=== PATIENT | male | born 1960 | race Caucasian/White ===

== ENCOUNTER 2016-11-10 20:38 | Emergency (ER) | payer OTHER ==
[2016-11-10 22:53] LABS: Hematocrit 43 % (42-52); Hemoglobin 14.3 g/dl (14.0-18.0); Mean Corpuscular HGB Conc 33 g/dl (31-36); Mean Corpuscular Hemoglobin 33 pg (27-31); Mean Corpuscular Volume 100 fL (80-94); Mean Platelet Volume 7 um3 (7.4-10.4); Red Blood Count 4.32 10^6/ul (4.0-5.4); Red Cell Distribution Width 14 % (10.5-15); White Blood Count 4.1 10^3/ul (3.5-10.8)
[2016-11-10 23:20] LABS: Troponin I 0.01 ng/mL (<0.04)
[2016-11-10 23:21] LABS: Albumin 3.9 g/dL (3.2-5.2); BUN/Creatinine Ratio 10.3 (8-20); Calcium 9.4 mg/dL (8.6-10.3); EGFR African American 131.5 (>60); EGFR Non-African American 102.2 (>60); Globulin 3.5 g/dL (2-4); Potassium 3.6 mmol/L (3.5-5.0); Total Bilirubin 0.3 mg/dL (0.2-1.0); Total Protein 7.4 g/dL (6.4-8.9)
[2016-11-11] MEDS ORDERED: Iohexol 350* (CONTRAST) 500 ML MDV IV ONE (00:14)
[2016-11-11] MEDS ORDERED: NS 0.9% 1000 ML* 1,000 ML IV ONE (00:20)
--- NOTE | 2016-11-11 01:56 | ED ---
Primitivo Thompson Benjamin, scribed for Monika Robbins MD on 11/10/16 at 2258 . Abdominal Pain/Male - HPI Summary HPI Summary: 56yo male presents to ED for evaluation for his right rib pain. Pt reports pain in right ribs and right chest under his right nipple. Pt reports pain worsening with cough, and that pt has been lifting heavy objects frequently for work. - History of Current Complaint Chief Complaint: EDGeneral Stated Complaint: CHEST XRAY REQUESTED BY KATHIE Time Seen by Provider: 11/10/16 21:50 Hx Obtained From: Patient Onset/Duration: Sudden Onset, Lasting Days, Still Present Timing: Constant Severity Initially: Mild Severity Currently: Mild Location: Other - right rib Radiates: Yes Radiates to: Chest - right nipple Aggravating Factor(s): Nothing Alleviating Factor(s): Nothing Associated Signs And Symptoms: Positive: Negative. Negative: Fever, Cough, Chest Pain, Nausea, Vomiting - Allergies/Home Medications Allergies/Adverse Reactions: Allergies Allergy/AdvReac Type Severity Reaction Status Date / Time No Known Allergies Allergy Verified 11/10/16 20:51 PMH/Surg Hx/FS Hx/Imm Hx Previously Healthy: Yes Infectious Disease History: No Infectious Disease History: Denies: Traveled Outside the [place] in Last 30 Days - Family History Known Family History: Negative: Cardiac Disease, Hypertension, Diabetes - Social History Occupation: Employed Full-time Lives: Alone Alcohol Use: Daily Alcohol Amount: "at least 6 drinks per day" Substance Use Type: Reports: None Hx Tobacco Use: Yes Smoking Status (MU): Heavy Every Day Tobacco Smoker Review of Systems Constitutional: Negative Negative: Fever Eyes: Negative Positive: Epistaxis Cardiovascular: Negative Positive: Other - pain under right nipple. Right rib pain. Negative: Palpitations, Chest Pain Positive: Cough Gastrointestinal: Negative Negative: Abdominal Pain, Vomiting, Diarrhea, Nausea Genitourinary: Negative Musculoskeletal: Negative Skin: Negative Negative: Rash Neurological: Negative Negative: Headache Psychological: Normal All Other Systems Reviewed And Are Negative: Yes Physical Exam Triage Information Reviewed: Yes Vital Signs On Initial Exam: Initial Vitals Temp Pulse Resp BP Pulse Ox 98.1 F 92 15 125/78 99 11/10/16 20:49 11/10/16 20:49 11/10/16 20:49 11/10/16 20:49 11/10/16 20:49 Vital Signs Reviewed: Yes Appearance: Positive: Well-Appearing, Pain Distress - mild Skin: Positive: Warm, Skin Color Reflects Adequate Perfusion, Dry Head/Face: Positive: Normal Head/Face Inspection Eyes: Positive: EOMI, ANDIE ENT: Positive: Normal ENT inspection, Hearing grossly normal, Pharynx normal, TMs normal Neck: Positive: Supple, Nontender Respiratory/Lung Sounds: Positive: Clear to Auscultation, Breath Sounds Present. Negative: Rales, Rhonchi Cardiovascular: Positive: RRR. Negative: Murmur Abdomen Description: Positive: Nontender, Soft Bowel Sounds: Positive: Present Musculoskeletal: Positive: Other - No crepitus. pain under the right nipple. Neurological: Positive: Normal, Sensory/Motor Intact, Alert, Oriented to Person Place, Time, CN Intact II-III Psychiatric: Positive: Affect/Mood Appropriate - [place] Coma Scale Coma Scale Total: 15 Diagnostics - Vital Signs Vital Signs Temp Pulse Resp BP Pulse Ox 11/10/16 20:49 98.1 F 92 15 125/78 99 - Laboratory Lab Results: Lab Results 11/10/16 11/10/16 11/10/16 Range/Units 22:45 22:45 22:45 WBC 4.1 (3.5-10.8) 10^3/ul RBC 4.32 (4.0-5.4) 10^6/ul Hgb 14.3 (14.0-18.0) g/dl Hct 43 (42-52) % MCV 100 H (80-94) fL MCH 33 H (27-31) pg MCHC 33 (31-36) g/dl RDW 14 (10.5-15) % Plt Count 234 (150-450) 10^3/ul MPV 7 L (7.4-10.4) um3 Neut % (Auto) 32.6 L (38-83) % Lymph % (Auto) 47.2 H (25-47) % [place] % (Auto) 10.7 H (1-9) % Eos % (Auto) 8.2 H (0-6) % Baso % (Auto) 1.3 (0-2) % Absolute Neuts (auto) 1.3 L (1.5-7.7) 10^3/ul Absolute Lymphs (auto) 1.9 (1.0-4.8) 10^3/ul Absolute Monos (auto) 0.4 (0-0.8) 10^3/ul Absolute Eos (auto) 0.3 (0-0.6) 10^3/ul Absolute Basos (auto) 0.1 (0-0.2) 10^3/ul Absolute Nucleated RBC 0 10^3/ul Nucleated RBC % 0 D-Dimer, Quantitative 385 H (Less Than 230) ng/mL Sodium 137 (133-145) mmol/L Potassium 3.6 (3.5-5.0) mmol/L Chloride 101 (101-111) mmol/L Carbon Dioxide 31 (22-32) mmol/L Anion Gap 5 (2-11) mmol/L BUN 8 (6-24) mg/dL Creatinine 0.78 (0.67-1.17) mg/dL Est GFR ( Amer) 131.5 (>60) Est GFR (Non-Af Amer) 102.2 (>60) BUN/Creatinine Ratio 10.3 (8-20) Glucose 82 (70-100) mg/dL Calcium 9.4 (8.6-10.3) mg/dL Total Bilirubin 0.30 (0.2-1.0) mg/dL AST 37 (13-39) U/L ALT 28 (7-52) U/L Alkaline Phosphatase 48 (34-104) U/L Troponin I 0.01 (<0.04) ng/mL Total Protein 7.4 (6.4-8.9) g/dL Albumin 3.9 (3.2-5.2) g/dL Globulin 3.5 (2-4) g/dL Albumin/Globulin Ratio 1.1 (1-3) Result Diagrams: 11/10/16 22:45 11/10/16 22:45 Lab Statement: Any lab studies that have been ordered have been reviewed, and results considered in the medical decision making process. - Radiology CXR Xray Interpretation: No Acute Changes Radiology Interpretation Completed By: ED Physician - CT CTA Chest CT Interpretation: No Acute Changes CT Interpretation Completed By: Radiologist - EKG 1397. Cardiac Rate: NL - 87bpm EKG Rhythm: Sinus Rhythm ST Segment: Normal Ectopy: None Abdominal Pain Fem Course/Dx - Course Course Of Treatment: 56 yo male alcoholic and smoker with right sided chest wall pain x several weeks, no trauma but does do heavy lifting at his job at [employer] labs, cxr and cta (elevated ddimer) neg. [facility] - Diagnoses Provider Diagnoses: Chest wall pain Discharge - Discharge Plan Condition: Stable Disposition: HOME Patient Education Materials: Chest Wall Pain (ED) Referrals: [facility] [place] [facility]ERR[facility] [Outside] Non Staff,Doctor [Primary Care Provider] - The documentation as recorded by the Primitivo vides Benjamin accurately reflects the service I personally performed and the decisions made by me, Monika Robbins MD.
[2016-11-11 01:59] VITALS: BP 123/78
--- NOTE | 2016-11-11 07:11 | RAD ---
INDICATION: Chest pain COMPARISON: October 28, 2004 TECHNIQUE: PA and lateral dual-energy views were obtained. FINDINGS: Bones/Soft Tissues: There are no acute bony findings. Cardiomediastinal: The cardiomediastinal silhouette is normal. Lungs: There are no infiltrates. There is hyperinflation. Pleura: There are no pleural effusions. Other: None IMPRESSION: HYPERINFLATION. NO ACTIVE DISEASE.
--- NOTE | 2016-11-11 10:28 | RAD ---
Indication: Chest pain. Contrast: Administered 58.7 ml of OMNIPAQUE 350 mgi/ml CTA of the chest was performed after IV contrast administration. Coronal and sagittal reconstructed images were obtained. The pulmonary arterial tree is well opacified. There are no filling defects present to suggest pulmonary embolus. There is a lymph node in the AP window measuring up to 10 mm. There is an aberrant right subclavian artery noted. The trachea and major bronchi appear patent. No evidence of nodules are identified, although atelectasis is noted in the lingula and right middle lobe. No alveolar consolidation is noted. No pneumothorax is noted. The aorta demonstrates no evidence of aortic dissection or aneurysmal dilatation. The liver is enlarged with likely diffusely decreased in density consistent with hepatic steatosis. There is a left renal cyst noted. The remainder of the abdominal organs are unremarkable. IMPRESSION: 1. NO PULMONARY EMBOLUS IS NOTED. NO EVIDENCE OF AORTIC DISSECTION IS NOTED. ATELECTASIS IS NOTED IN THE RIGHT MIDDLE LOBE AND LINGULA. 2. ENLARGED LIVER WITH LIKELY HEPATIC STEATOSIS.
== END 2016-11-11 01:51 | disposition home or self-care (01) ==
LOC: ED 20:38
DX: R07.81 Pleurodynia (principal); R05 Cough; F17.210 Nicotine dependence, cigarettes, uncomplicated
CPT/HCPCS: 36415; 71020; 71275; 80053; 84484; 85025; 85379; 93005; 99282; Q9967

== ENCOUNTER 2018-02-26 17:27 | Emergency (ER) | payer OTHER ==
[2018-02-26] MEDS ORDERED: LORazepam INJ* 2 MG/ML 1 ML VIAL IM ONE (18:10)
[2018-02-26] MEDS ORDERED: Haloperidol INJ IV/IM* 5 MG/ML AMP IM ONE (18:10)
[2018-02-26] MEDS ORDERED: diPHENhydraMINE IV* 50 MG/ML 1 ml VIAL (BENADRYL) IM ONE (18:11)
[2018-02-26 19:32] LABS: ABS Basophils 0 10^3/ul (0-0.2); ABS Eosinophils 0.1 10^3/ul (0-0.6); ABS Lymphocytes 1.4 10^3/ul (1.0-4.8); ABS Monocytes 0.3 10^3/ul (0-0.8); ABS Neutrophils 1.8 10^3/ul (1.5-7.7); ABS Nucleated RBC 0 10^3/ul; Eosinophil % 1.4 % (0-6); Hematocrit 41 % (42-52); Hemoglobin 14.2 g/dl (14.0-18.0); Lymphocyte % 39.2 % (25-47); Mean Corpuscular HGB Conc 35 g/dl (31-36); Mean Corpuscular Hemoglobin 34 pg (27-31); Mean Corpuscular Volume 100 fL (80-94); Mean Platelet Volume 7.6 fL (7.4-10.4); Nucleated Red Blood Cells % 0.2; Platelet Count 148 10^3/ul (150-450); Red Blood Count 4.14 10^6/ul (4.00-5.40); Red Cell Distribution Width 13 % (10.5-15); White Blood Count 3.6 10^3/ul (3.5-10.8)
--- NOTE | 2018-02-27 02:49 | ED ---
Substance Abuse/Use - HPI Summary HPI Summary: Patient positive for EtOH was found lying in the street by PD and brought for evaluation. Patient alert and oriented, also irate and agitated, denies any pain or injury, desires to leave. Refuses to state how much he has had to drink , will only state he is okay and wants to go home. Patient persuaded to stay for observation and blood work. - History Of Current Complaint Chief Complaint: EDSubstanceAbuse Stated Complaint: 2208 Time Seen by Provider: 02/26/18 17:44 Hx Obtained From: Patient Overdose Characteristics: Oral Severity Initially: Moderate Severity Currently: Moderate Character: Angry Associated Signs And Symptoms: Hostile - Allergies/Home Medications Allergies/Adverse Reactions: Allergies Allergy/AdvReac Type Severity Reaction Status Date / Time No Known Allergies Allergy Verified 11/10/16 20:51 Home Medications: Home Medications Unobtainable 02/26/18 [History Confirmed 02/26/18] PMH/Surg Hx/FS Hx/Imm Hx Endocrine/Hematology History: Denies: Hx Diabetes Cardiovascular History: Denies: Hx Hypertension History: Denies: Hx Dialysis, Hx Renal Disease Infectious Disease History: No Infectious Disease History: Denies: Traveled Outside the [place] in Last 30 Days - Family History Known Family History: Negative: Cardiac Disease, Hypertension, Diabetes - Social History Alcohol Use: Daily Alcohol Amount: "at least 6 drinks per day" Hx Substance Use: No Substance Use Type: Reports: None Hx Tobacco Use: Yes Smoking Status (MU): Heavy Every Day Tobacco Smoker Review of Systems Constitutional: Negative Eyes: Negative ENT: Negative Cardiovascular: Negative Respiratory: Negative Gastrointestinal: Negative Genitourinary: Negative Musculoskeletal: Negative Skin: Negative Neurological: Negative Psychological: Normal All Other Systems Reviewed And Are Negative: Yes Physical Exam - Summary Physical Exam Summary: No ecchymosis, erythema, deformity, swelling, trauma noted to head, face, mouth. Patient moving bilateral upper extremities and bilateral lower extremities without any indication of pain. No pain with palpation of the abdomen, chest wall, neck, back, head. Triage Information Reviewed: Yes Vital Signs On Initial Exam: Initial Vitals Temp Pulse Resp BP Pulse Ox 98.2 F 92 16 130/85 98 02/26/18 17:30 02/26/18 17:30 02/26/18 17:30 02/26/18 17:30 02/26/18 17:30 Vital Signs Reviewed: Yes Appearance: Positive: Well-Appearing Skin: Positive: Warm Head/Face: Positive: Normal Head/Face Inspection Eyes: Positive: Normal Neck: Positive: Supple Respiratory/Lung Sounds: Positive: Clear to Auscultation Cardiovascular: Positive: Normal Abdomen Description: Positive: Nontender Musculoskeletal: Positive: Normal Neurological: Positive: Normal Psychiatric: Positive: Normal AVPU Assessment: Alert - [place] Coma Scale Best Eye Response: 4 - Spontaneous Best Motor Response: 6 - Obeys Commands Best Verbal Response: 5 - Oriented Coma Scale Total: 15 Diagnostics - Vital Signs Vital Signs Temp Pulse Resp BP Pulse Ox 02/26/18 17:30 98.2 F 92 16 130/85 98 - Laboratory Lab Results: Lab Results 02/26/18 02/26/18 Range/Units 19:24 19:24 WBC 3.6 (3.5-10.8) 10^3/ul RBC 4.14 (4.00-5.40) 10^6/ul Hgb 14.2 (14.0-18.0) g/dl Hct 41 L (42-52) % MCV 100 H (80-94) fL MCH 34 H (27-31) pg MCHC 35 (31-36) g/dl RDW 13 (10.5-15) % Plt Count 148 L (150-450) 10^3/ul MPV 7.6 (7.4-10.4) fL Neut % (Auto) 50.2 (38-83) % Lymph % (Auto) 39.2 (25-47) % [place] % (Auto) 8.3 H (0-7) % Eos % (Auto) 1.4 (0-6) % Baso % (Auto) 0.9 (0-2) % Absolute Neuts (auto) 1.8 (1.5-7.7) 10^3/ul Absolute Lymphs (auto) 1.4 (1.0-4.8) 10^3/ul Absolute Monos (auto) 0.3 (0-0.8) 10^3/ul Absolute Eos (auto) 0.1 (0-0.6) 10^3/ul Absolute Basos (auto) 0 (0-0.2) 10^3/ul Absolute Nucleated RBC 0 10^3/ul Nucleated RBC % 0.2 Sodium 136 (135-145) mmol/L Potassium 3.6 (3.5-5.0) mmol/L Chloride 101 (101-111) mmol/L Carbon Dioxide 26 (22-32) mmol/L Anion Gap 9 (2-11) mmol/L BUN 6 (6-24) mg/dL Creatinine 0.64 L (0.67-1.17) mg/dL Est GFR ( Amer) 154.9 (>60) Est GFR (Non-Af Amer) 128.0 (>60) BUN/Creatinine Ratio 9.4 (8-20) Glucose 110 H (70-100) mg/dL Calcium 8.8 (8.6-10.3) mg/dL Total Bilirubin 0.40 (0.2-1.0) mg/dL AST 52 H (13-39) U/L ALT 44 (7-52) U/L Alkaline Phosphatase 48 (34-104) U/L Total Protein 6.4 (6.4-8.9) g/dL Albumin 3.8 (3.2-5.2) g/dL Globulin 2.6 (2-4) g/dL Albumin/Globulin Ratio 1.5 (1-3) Serum Alcohol 260 H (<10) mg/dL Result Diagrams: 02/26/18 19:24 02/26/18 19:24 Lab Statement: Any lab studies that have been ordered have been reviewed, and results considered in the medical decision making process. Course/Dx - Course Course Of Treatment: Patient positive for EtOH was found lying in the street by PD and brought for evaluation. Patient alert and oriented, also irate and agitated, denies any pain or injury, desires to leave. Refuses to state how much he has had to drink, will only state he is okay and wants to go home. Patient persuaded to stay for observation and blood work. Physical exam:No ecchymosis, erythema, deformity, swelling, trauma noted to head, face, mouth. Patient moving bilateral upper extremities and bilateral lower extremities without any indication of pain. No pain with palpation of the abdomen, chest wall, neck, back, head. Patient slept for 6 hours. Upon arousal was alert, coherent, calm. States she is ready to go home. She was ambulated and maintained balance without issue. No diaphoresis, agitation, nausea or vomiting hallucinations tremors noted. Patient was able to dress himself, was coherent and appropriate in his answers and behavior. Continued to deny injury or pain or symptoms. Patient was sent home by cab. - Diagnoses Provider Diagnoses: ETOH abuse Discharge - Sign-Out/Discharge Documenting (check all that apply): Patient Departure - Discharge Plan Condition: Stable Disposition: HOME Patient Education Materials: Abuse of Alcohol (ED) Referrals: Ye Peraza MD [Primary Care Provider] - Additional Instructions: Follow-up with primary care. Return to the ED for any new or worsening symptoms. - Billing Disposition and Condition Condition: STABLE Disposition: Home
[2018-02-27 04:54] VITALS: BP 0/0
== END 2018-02-27 03:30 | disposition home or self-care (01) ==
LOC: ED 17:27
DX: F10.129 Alcohol abuse with intoxication, unspecified (principal); Y90.8 Blood alcohol level of 240 mg/100 ml or more; F17.210 Nicotine dependence, cigarettes, uncomplicated
CPT/HCPCS: 36415; 80053; 80320; 85025; 96372; 99283; G0480

== ENCOUNTER 2018-02-28 21:23 | Inpatient (IN) | payer MEDICAID, OTHER ==
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
[2018-02-28] MEDS ORDERED: Metoclopramide IV* 5 MG/ML 2 ML VIAL IV ONE (22:17)
[2018-02-28] MEDS ORDERED: HYDROmorphone INJ1* 1 MG/ML SYRINGE IV SLOW PU ONE (22:17)
[2018-02-28 22:40] LABS: ABS Basophils 0 10^3/ul (0-0.2); ABS Eosinophils 0 10^3/ul (0-0.6); ABS Lymphocytes 1.2 10^3/ul (1.0-4.8); ABS Monocytes 0.6 10^3/ul (0-0.8); ABS Neutrophils 6.8 10^3/ul (1.5-7.7); ABS Nucleated RBC 0 10^3/ul; Eosinophil % 0.4 % (0-6); Hematocrit 40 % (42-52); Lymphocyte % 13.6 % (25-47); Mean Corpuscular HGB Conc 35 g/dl (31-36); Mean Corpuscular Hemoglobin 35 pg (27-31); Mean Corpuscular Volume 100 fL (80-94); Mean Platelet Volume 7.6 fL (7.4-10.4); Nucleated Red Blood Cells % 0; Platelet Count 147 10^3/ul (150-450); Red Blood Count 4.03 10^6/ul (4.00-5.40); Red Cell Distribution Width 13 % (10.5-15); White Blood Count 8.5 10^3/ul (3.5-10.8)
[2018-02-28 22:49] LABS: INR 0.87 (0.77-1.02)
[2018-02-28 23:03] LABS: EGFR Non-African American 130.4 (>60)
[2018-03-01] MEDS ORDERED: NS 0.9% 1000 ML* 1,000 ML IV SCH ×3 (01:00→06:15)
[2018-03-01] MEDS ORDERED: Thiamine IV* 100 MG/ML 2 ML VIAL IM ONE (01:56)
[2018-03-01] MEDS ORDERED: Ondansetron INJ* 2 MG/ML VIAL IV PRN (01:59)
[2018-03-01] MEDS ORDERED: LORazepam TAB(*) 1 MG PO SCH (02:00)
[2018-03-01] MEDS ORDERED: LORazepam INJ* 2 MG/ML 1 ML VIAL IM SCH (02:00)
[2018-03-01] MEDS: Morphine VIAL* 4 MG/ML VIAL (1 ml vial) IV PRN ×2 (02:50→10:49)
[2018-03-01] MEDS: Multivitamins/Minerals TAB PO SCH ×2 (03:27→08:06)
[2018-03-01] MEDS: Thiamine TAB* 100 MG TAB PO SCH ×2 (03:27→08:07)
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
[2018-03-01] MEDS ORDERED: Albuterol/Ipratropium NEB.SOL* Albuterol 2.5 MG/Ipratropium 0.5 MG 3 ML INH SCH (07:00)
[2018-03-01] MEDS: Folic Acid TAB* 1 MG PO SCH (08:06)
[2018-03-01] MEDS ORDERED: Famotidine IV* 10 MG/ML 2 ML (20 mg) IV ONE (08:20)
[2018-03-01] MEDS ORDERED: Pneumococcal *Vac Polyvalent 0.5 ML VIAL IM ONE (09:00)
[2018-03-01] MEDS ORDERED: Albuterol/Ipratropium NEB.SOL* Albuterol 2.5 MG/Ipratropium 0.5 MG 3 ML INH PRN (09:05)
[2018-03-01] MEDS ORDERED: Enoxaparin(*) 40 MG/0.4 ML SYR SUBCUT SCH (10:00)
[2018-03-01] MEDS: Nicotine PATCH 21 MG/24 HR* PATCH TRANSDERM SCH (10:10)
[2018-03-01 11:31] LABS: ABS Basophils 0 10^3/ul (0-0.2); ABS Eosinophils 0 10^3/ul (0-0.6); ABS Lymphocytes 0.7 10^3/ul (1.0-4.8); ABS Monocytes 0.6 10^3/ul (0-0.8); ABS Neutrophils 6.6 10^3/ul (1.5-7.7); ABS Nucleated RBC 0 10^3/ul; Eosinophil % 0.1 % (0-6); Hematocrit 35 % (42-52); Hemoglobin 12.3 g/dl (14.0-18.0); Lymphocyte % 9.2 % (25-47); Mean Corpuscular HGB Conc 35 g/dl (31-36); Mean Corpuscular Hemoglobin 35 pg (27-31); Mean Corpuscular Volume 99 fL (80-94); Nucleated Red Blood Cells % 0; Platelet Count 147 10^3/ul (150-450); Red Blood Count 3.52 10^6/ul (4.00-5.40); Red Cell Distribution Width 13 % (10.5-15)
[2018-03-01 11:39] LABS: Urine Appearance Cloudy; Urine Blood 2+ (Negative); Urine Color Yellow; Urine Ketones 2+ (Negative); Urine Protein Negative (Negative); Urine Red Blood Cell 2+(6-10/hpf) (Absent); Urine Specific Gravity 1.015 (1.010-1.030); Urine Urobilinogen Negative (Negative); Urine White Blood Cell Trace(0-5/hpf) (Absent)
[2018-03-01 11:48] LABS: EGFR Non-African American 135.3 (>60)
[2018-03-01 12:14] LABS: INR 0.89 (0.77-1.02)
--- NOTE | 2018-03-01 12:18 | CONSULT ---
Consult Consult: Patient was seen and examined at bedside. Full consultation report was dictated and stat landscaping supervisor requested. Patient has a right intertrochanteric fracture and will go to the OR for a gamma nail today with Dr. Pa. He should remain NPO and anticoag be held today. I have discussed this case with Dr Priest who has confirmed he is medically optimized with no need for further medical workup prior to surgery. Anticipated OR time is 1330.
[2018-03-01] MEDS ORDERED: KETAMINE HCL* 50 MG/ML 10 ML VIAL ONE (12:32)
[2018-03-01] MEDS ORDERED: fentaNYL* 50 MCG/ML 2 ML VIAL (100 MCG VIAL) ONE ×2 (12:32→14:50)
[2018-03-01] MEDS ORDERED: Midazolam* 1 MG/ML 5 ML VIAL (5 MG) ONE (12:33)
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
[2018-03-01] MEDS ORDERED: ceFAZolin 2 GM PREMIX in ORs 2 GM/50 ML BAG IVPB ONE (13:01)
[2018-03-01] MEDS ORDERED: Morphine VIAL* 4 MG/ML VIAL (1 ml vial) IV ONE (13:40)
[2018-03-01] MEDS ORDERED: Bupivacaine 0.25% W/EPI* 10 ML SDV ONE (14:07)
[2018-03-01] MEDS ORDERED: Propofol* 10 MG/ML 20 ML BTL IV PUSH ONE (14:49)
[2018-03-01] MEDS ORDERED: Lidocaine 2% PF * 5 ML VIAL ONE (14:49)
[2018-03-01] MEDS ORDERED: Dexamethasone IV* 4 MG/ML 1 ML (4 MG) ONE (14:49)
[2018-03-01] MEDS ORDERED: Ketorolac INJ* 30 MG/ML 1 ML VIAL ONE (14:49)
[2018-03-01] MEDS ORDERED: Ondansetron INJ* 2 MG/ML VIAL ONE (14:49)
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
[2018-03-01] MEDS ORDERED: PROCHLORPERAZINE INJ 5 MG/ML 2 ML VIAL IV PRN (15:56)
[2018-03-01] MEDS ORDERED: Naloxone* 0.4 MG/ML 1 ML VIAL IV PRN (15:56)
[2018-03-01] MEDS ORDERED: oxyCODONE/Acetamin 5/325 MG* TAB PO PRN (15:56)
[2018-03-01] MEDS ORDERED: DiMENhydriNATE IV* 50 MG/ML VIAL IV PUSH PRN (15:56)
[2018-03-01] MEDS ORDERED: Morphine VIAL* 4 MG/ML VIAL (1 ml vial) IV PRN (15:56)
[2018-03-01] MEDS ORDERED: fentaNYL* 50 MCG/ML 2 ML VIAL (100 MCG VIAL) IV PRN (15:56)
[2018-03-01] MEDS ORDERED: Labetalol IV* 5 MG/ML 20 ML VIAL ONE (16:18)
[2018-03-01] MEDS: HYDROcodone/ACETAMIN 5-325 MG* 1 TAB PO PRN (19:33)
[2018-03-01] MEDS: ceFAZolin 1 GM in Dextrose (*) 1 GM/50 ML BAG IVPB SCH (22:38)
[2018-03-01] MEDS: Nicotine Patch Removal NOTE PATCH OFF SCH (22:44)
[2018-03-01] MEDS: Mouth Piece, Nicotine* 1 EACH CARTRIDGE INH SCH (23:31)
[2018-03-01] MEDS: Nicotine Inhaler* 10 MG AMP INH PRN (23:31)
[2018-03-02] MEDS: HYDROcodone/ACETAMIN 5-325 MG* 1 TAB PO PRN ×5 (05:37→22:47)
[2018-03-02] MEDS: Nicotine Inhaler* 10 MG AMP INH PRN (05:38)
[2018-03-02] MEDS: Heparin VIAL(*) 5000 UNITS/ML VIAL (FIVE THOUSAND) SUBCUT SCH ×3 (05:40→22:45)
[2018-03-02] MEDS: ceFAZolin 1 GM in Dextrose (*) 1 GM/50 ML BAG IVPB SCH ×2 (05:44→15:40)
[2018-03-02 05:49] LABS: ABS Basophils 0 10^3/ul (0-0.2); ABS Eosinophils 0 10^3/ul (0-0.6); ABS Lymphocytes 0.5 10^3/ul (1.0-4.8); ABS Monocytes 0.8 10^3/ul (0-0.8); ABS Neutrophils 7.8 10^3/ul (1.5-7.7); ABS Nucleated RBC 0 10^3/ul; Eosinophil % 0 % (0-6); Hematocrit 31 % (42-52); Hemoglobin 10.8 g/dl (14.0-18.0); Lymphocyte % 5.3 % (25-47); Mean Corpuscular HGB Conc 35 g/dl (31-36); Mean Corpuscular Hemoglobin 34 pg (27-31); Mean Corpuscular Volume 100 fL (80-94); Mean Platelet Volume 8.4 fL (7.4-10.4); Nucleated Red Blood Cells % 0; Platelet Count 140 10^3/ul (150-450); Red Blood Count 3.13 10^6/ul (4.00-5.40); Red Cell Distribution Width 12 % (10.5-15)
[2018-03-02 06:02] LABS: INR 0.86 (0.77-1.02)
[2018-03-02 06:09] LABS: EGFR Non-African American 130.4 (>60)
[2018-03-02] MEDS: Folic Acid TAB* 1 MG PO SCH (08:10)
[2018-03-02] MEDS: Nicotine PATCH 21 MG/24 HR* PATCH TRANSDERM SCH (08:10)
[2018-03-02] MEDS: Multivitamins/Minerals TAB PO SCH (08:10)
[2018-03-02] MEDS: Thiamine TAB* 100 MG TAB PO SCH (08:10)
--- NOTE | 2018-03-02 08:16 | PN ---
Progress Note - Progress Note Date of Service: 03/02/18 SOAP: Subjective: []Patient was seen and examined at bedside. His pain is much improved from his preoperative state. Denies any leg numbness, chest pain, shortness of breath, dizziness or nausea. Patient would like to DC to home when medically ready. He does not have around the clock help, does have a ramp to enter the building and an elevator to get to his floor. Objective: []General: Well appearing, NAD RLE: Right hip dressing CDI. Thigh is soft. DF/PF intact, Sensation intact distally, DP2+, capillary refill less than two seconds distally. Calves supple and nontender without erythema, edema or palpable cords Assessment: []Right hip intertrochanteric fracture now POD 1 s/p short gamma nail 03/01/[address] Pa Plan: []WBAT PT/OT Dressing change tomorrow and daily thereafter Heparin for DVT prophylaxis in house. Will need either lovenox or aspirin for DVT prophylaxis for 30 days post op at discharge Anticipate he will be orthopedically ready for DC tomorrow. hyponatremia: Repeat tomorrow. Stop IV fluids Vital Signs Temp 98.0 F 03/02/18 07:14 Pulse 88 03/02/18 07:14 Resp 16 03/02/18 07:35 BP 116/73 03/02/18 07:14 Pulse Ox 100 03/02/18 07:26 Intake & Output 03/01/18 03/02/18 03/02/18 18:59 06:59 18:59 Intake Total 1200 1120 Output Total 500 1200 Balance 700 -80 Intake: IV Fluids 1200 LR 1200 Oral 1120 Output: Mckoy 500 1200 Laboratory Last Values WBC 9.0 10^3/ul (3.5-10.8) 03/02/18 05:27 RBC 3.13 10^6/ul (4.00-5.40) L 03/02/18 05:27 Hgb 10.8 g/dl (14.0-18.0) L 03/02/18 05:27 Hct 31 % (42-52) L 03/02/18 05:27 MCV 100 fL (80-94) H 03/02/18 05:27 MCH 34 pg (27-31) H 03/02/18 05:27 MCHC 35 g/dl (31-36) 03/02/18 05:27 RDW 12 % (10.5-15) 03/02/18 05:27 Plt Count 140 10^3/ul (150-450) L 03/02/18 05:27 MPV 8.4 fL (7.4-10.4) 03/02/18 05:27 Neut % (Auto) 86.2 % (38-83) H 03/02/18 05:27 Lymph % (Auto) 5.3 % (25-47) L 03/02/18 05:27 [place] % (Auto) 8.4 % (0-7) H 03/02/18 05:27 Eos % (Auto) 0 % (0-6) 03/02/18 05:27 Baso % (Auto) 0.1 % (0-2) 03/02/18 05:27 Absolute Neuts (auto) 7.8 10^3/ul (1.5-7.7) H 03/02/18 05:27 Absolute Lymphs (auto) 0.5 10^3/ul (1.0-4.8) L 03/02/18 05:27 Absolute Monos (auto) 0.8 10^3/ul (0-0.8) 03/02/18 05:27 Absolute Eos (auto) 0 10^3/ul (0-0.6) 03/02/18 05:27 Absolute Basos (auto) 0 10^3/ul (0-0.2) 03/02/18 05:27 Absolute Nucleated RBC 0 10^3/ul 03/02/18 05:27 Nucleated RBC % 0 03/02/18 05:27 INR (Anticoag Therapy) 0.86 (0.77-1.02) 03/02/18 05:27 APTT 28.1 seconds (26.0-36.3) 03/02/18 05:27 Sodium 132 mmol/L (135-145) L 03/02/18 05:27 Potassium 4.4 mmol/L (3.5-5.0) 03/02/18 05:27 Chloride 100 mmol/L (101-111) L 03/02/18 05:27 Carbon Dioxide 28 mmol/L (22-32) 03/02/18 05:27 Anion Gap 4 mmol/L (2-11) 03/02/18 05:27 BUN 13 mg/dL (6-24) 03/02/18 05:27 Creatinine 0.63 mg/dL (0.67-1.17) L 03/02/18 05:27 Est GFR ( Amer) 157.7 (>60) 03/02/18 05:27 Est GFR (Non-Af Amer) 130.4 (>60) 03/02/18 05:27 BUN/Creatinine Ratio 20.6 (8-20) H 03/02/18 05:27 Glucose 244 mg/dL (70-100) H 03/02/18 05:27 Calcium 8.6 mg/dL (8.6-10.3) 03/02/18 05:27 Phosphorus 2.6 mg/dL (2.5-5.0) 03/02/18 05:27 Magnesium 1.7 mg/dL (1.9-2.7) L 03/02/18 05:27 Total Bilirubin 0.70 mg/dL (0.2-1.0) 03/02/18 05:27 AST 48 U/L (13-39) H 03/02/18 05:27 ALT 34 U/L (7-52) 03/02/18 05:27 Alkaline Phosphatase 47 U/L (34-104) 03/02/18 05:27 Total Creatine Kinase 696 U/L (10-223) H 03/02/18 05:27 Total Protein 5.9 g/dL (6.4-8.9) L 03/02/18 05:27 Albumin 3.2 g/dL (3.2-5.2) 03/02/18 05:27 Globulin 2.7 g/dL (2-4) 03/02/18 05:27 Albumin/Globulin Ratio 1.2 (1-3) 03/02/18 05:27 Urine Color Yellow 03/01/18 11:15 Urine Appearance Cloudy 03/01/18 11:15 Urine pH 5.0 (5-9) 03/01/18 11:15 Ur Specific [place] 1.015 (1.010-1.030) 03/01/18 11:15 Urine Protein Negative (Negative) 03/01/18 11:15 Urine Ketones 2+ (Negative) A 03/01/18 11:15 Urine Blood 2+ (Negative) A 03/01/18 11:15 Urine Nitrate Negative (Negative) 03/01/18 11:15 Urine Bilirubin Negative (Negative) 03/01/18 11:15 Urine Urobilinogen Negative (Negative) 03/01/18 11:15 Ur Leukocyte Esterase Negative (Negative) 03/01/18 11:15 Urine WBC (Auto) Trace(0-5/hpf) (Absent) 03/01/18 11:15 Urine RBC (Auto) 2+(6-10/hpf) (Absent) A 03/01/18 11:15 Urine Bacteria Absent (Absent) 03/01/18 11:15 Urine Glucose Negative (Negative) 03/01/18 11:15 Blood Type A Positive 02/28/18 22:34 Antibody Screen Negative 02/28/18 22:34
[2018-03-02] MEDS: Mouth Piece, Nicotine* 1 EACH CARTRIDGE INH SCH (08:17)
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
[2018-03-02] MEDS: Nicotine Patch Removal NOTE PATCH OFF SCH (19:47)
[2018-03-03 05:33] LABS: ABS Basophils 0 10^3/ul (0-0.2); ABS Eosinophils 0.1 10^3/ul (0-0.6); ABS Lymphocytes 1.9 10^3/ul (1.0-4.8); ABS Monocytes 0.7 10^3/ul (0-0.8); ABS Neutrophils 4.2 10^3/ul (1.5-7.7); ABS Nucleated RBC 0 10^3/ul; Eosinophil % 1.4 % (0-6); Hematocrit 27 % (42-52); Hemoglobin 9.3 g/dl (14.0-18.0); Lymphocyte % 27.4 % (25-47); Mean Corpuscular HGB Conc 35 g/dl (31-36); Mean Corpuscular Hemoglobin 35 pg (27-31); Mean Corpuscular Volume 101 fL (80-94); Mean Platelet Volume 8.8 fL (7.4-10.4); Nucleated Red Blood Cells % 0.1; Platelet Count 136 10^3/ul (150-450); Red Blood Count 2.69 10^6/ul (4.00-5.40); Red Cell Distribution Width 13 % (10.5-15); White Blood Count 6.9 10^3/ul (3.5-10.8)
[2018-03-03 05:59] LABS: EGFR Non-African American 155.7 (>60)
[2018-03-03] MEDS: Heparin VIAL(*) 5000 UNITS/ML VIAL (FIVE THOUSAND) SUBCUT SCH ×3 (06:57→21:36)
[2018-03-03] MEDS: HYDROcodone/ACETAMIN 5-325 MG* 1 TAB PO PRN ×4 (07:13→21:35)
[2018-03-03] MEDS: Nicotine PATCH 21 MG/24 HR* PATCH TRANSDERM SCH (07:13)
[2018-03-03] MEDS: Folic Acid TAB* 1 MG PO SCH (08:18)
[2018-03-03] MEDS: Thiamine TAB* 100 MG TAB PO SCH (08:18)
[2018-03-03] MEDS: Multivitamins/Minerals TAB PO SCH (08:18)
[2018-03-03] MEDS: Mouth Piece, Nicotine* 1 EACH CARTRIDGE INH SCH (08:18)
--- NOTE | 2018-03-03 11:28 | PN ---
Progress Note - Progress Note Date of Service: 03/03/18 SOAP: Subjective: []Patient seen and examined at bedside. He feels well and right hip pain is tolerable. He does complain of thigh spasm and requests a muscle relaxer. Denies CP, SOB, dizziness, nausea. Confirms urinary retention. Did need to reinforce and then change his dressing last night due to saturation, no longer with any reported active bleeding. Objective: []General: Well appearing, NAD RLE: Right hip dressing changed, incision CDI. Dressing with mild dried blood but not saturated and no active bleeding today. Thigh is soft. DF/PF intact, Sensation intact distally, DP2+, capillary refill less than two seconds distally. Calves supple and nontender without erythema, edema or palpable cords Assessment: []Right hip intertrochanteric fracture now POD 2 s/p short gamma nail 03/01/[address] Pa Plan: []WBAT PT/OT Dressing change daily with betadine, gauze, tape Heparin for DVT prophylaxis in house. Will need either lovenox or aspirin for DVT prophylaxis for 30 days post op at discharge Ready for DC from orthopedic standpoint. DC per medicine when ready F/U in clinic with Dr Pa 10-14 days post op Vital Signs Temp 96.4 F 03/03/18 08:15 Pulse 82 03/03/18 08:15 Resp 18 03/03/18 11:13 BP 146/100 03/03/18 08:15 Pulse Ox 99 03/03/18 08:15 Intake & Output 03/02/18 03/03/18 03/03/18 18:59 06:59 18:59 Intake Total 1106 100 500 Output Total 725 1100 Balance 381 -1000 500 Intake: IV Fluids 12 NS (0.9%) 12 IVPB 54 ABX - CEFAZOLIN 54 Oral 1040 100 500 Output: Urine 0 0 [place] 200 Straight Cath 525 1100 Other: # Bowel Movements 0 Laboratory Last Values WBC 6.9 10^3/ul (3.5-10.8) 03/03/18 04:51 RBC 2.69 10^6/ul (4.00-5.40) L 03/03/18 04:51 Hgb 9.3 g/dl (14.0-18.0) L 03/03/18 04:51 Hct 27 % (42-52) L 03/03/18 04:51 MCV 101 fL (80-94) H 03/03/18 04:51 MCH 35 pg (27-31) H 03/03/18 04:51 MCHC 35 g/dl (31-36) 03/03/18 04:51 RDW 13 % (10.5-15) 03/03/18 04:51 Plt Count 136 10^3/ul (150-450) L 03/03/18 04:51 MPV 8.8 fL (7.4-10.4) 03/03/18 04:51 Neut % (Auto) 61.0 % (38-83) 03/03/18 04:51 Lymph % (Auto) 27.4 % (25-47) 03/03/18 04:51 [place] % (Auto) 9.9 % (0-7) H 03/03/18 04:51 Eos % (Auto) 1.4 % (0-6) 03/03/18 04:51 Baso % (Auto) 0.3 % (0-2) 03/03/18 04:51 Absolute Neuts (auto) 4.2 10^3/ul (1.5-7.7) 03/03/18 04:51 Absolute Lymphs (auto) 1.9 10^3/ul (1.0-4.8) 03/03/18 04:51 Absolute Monos (auto) 0.7 10^3/ul (0-0.8) 03/03/18 04:51 Absolute Eos (auto) 0.1 10^3/ul (0-0.6) 03/03/18 04:51 Absolute Basos (auto) 0 10^3/ul (0-0.2) 03/03/18 04:51 Absolute Nucleated RBC 0 10^3/ul 03/03/18 04:51 Nucleated RBC % 0.1 03/03/18 04:51 INR (Anticoag Therapy) 0.86 (0.77-1.02) 03/02/18 05:27 APTT 28.1 seconds (26.0-36.3) 03/02/18 05:27 Sodium 136 mmol/L (135-145) 03/03/18 04:51 Potassium 3.7 mmol/L (3.5-5.0) 03/03/18 04:51 Chloride 103 mmol/L (101-111) 03/03/18 04:51 Carbon Dioxide 30 mmol/L (22-32) 03/03/18 04:51 Anion Gap 3 mmol/L (2-11) 03/03/18 04:51 BUN 8 mg/dL (6-24) 03/03/18 04:51 Creatinine 0.54 mg/dL (0.67-1.17) L 03/03/18 04:51 Est GFR ( Amer) 188.4 (>60) 03/03/18 04:51 Est GFR (Non-Af Amer) 155.7 (>60) 03/03/18 04:51 BUN/Creatinine Ratio 14.8 (8-20) 03/03/18 04:51 Glucose 125 mg/dL (70-100) H 03/03/18 04:51 Calcium 8.5 mg/dL (8.6-10.3) L 03/03/18 04:51 Phosphorus 2.6 mg/dL (2.5-5.0) 03/02/18 05:27 Magnesium 1.7 mg/dL (1.9-2.7) L 03/02/18 05:27 Total Bilirubin 0.70 mg/dL (0.2-1.0) 03/02/18 05:27 AST 48 U/L (13-39) H 03/02/18 05:27 ALT 34 U/L (7-52) 03/02/18 05:27 Alkaline Phosphatase 47 U/L (34-104) 03/02/18 05:27 Total Creatine Kinase 696 U/L (10-223) H 03/02/18 05:27 Total Protein 5.9 g/dL (6.4-8.9) L 03/02/18 05:27 Albumin 3.2 g/dL (3.2-5.2) 03/02/18 05:27 Globulin 2.7 g/dL (2-4) 03/02/18 05:27 Albumin/Globulin Ratio 1.2 (1-3) 03/02/18 05:27 Urine Color Yellow 03/01/18 11:15 Urine Appearance Cloudy 03/01/18 11:15 Urine pH 5.0 (5-9) 03/01/18 11:15 Ur Specific Alpha 1.015 (1.010-1.030) 03/01/18 11:15 Urine Protein Negative (Negative) 03/01/18 11:15 Urine Ketones 2+ (Negative) A 03/01/18 11:15 Urine Blood 2+ (Negative) A 03/01/18 11:15 Urine Nitrate Negative (Negative) 03/01/18 11:15 Urine Bilirubin Negative (Negative) 03/01/18 11:15 Urine Urobilinogen Negative (Negative) 03/01/18 11:15 Ur Leukocyte Esterase Negative (Negative) 03/01/18 11:15 Urine WBC (Auto) Trace(0-5/hpf) (Absent) 03/01/18 11:15 Urine RBC (Auto) 2+(6-10/hpf) (Absent) A 03/01/18 11:15 Urine Bacteria Absent (Absent) 03/01/18 11:15 Urine Glucose Negative (Negative) 03/01/18 11:15 Blood Type A Positive 02/28/18 22:34 Antibody Screen Negative 02/28/18 22:34
[2018-03-03] MEDS: Cyclobenzaprine TAB* 10 MG PO PRN ×2 (14:42→23:32)
[2018-03-03] MEDS: Tamsulosin CAP* 0.4 MG PO SCH (16:10)
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
[2018-03-03] MEDS: Nicotine Patch Removal NOTE PATCH OFF SCH (21:49)
[2018-03-03] MEDS ORDERED: Docusate CAP* 100 MG PO ONE (23:55)
[2018-03-04] MEDS: HYDROcodone/ACETAMIN 5-325 MG* 1 TAB PO PRN ×3 (01:59→20:46)
[2018-03-04] MEDS: Heparin VIAL(*) 5000 UNITS/ML VIAL (FIVE THOUSAND) SUBCUT SCH ×3 (06:11→21:53)
[2018-03-04] MEDS: Multivitamins/Minerals TAB PO SCH (08:06)
[2018-03-04] MEDS: Tamsulosin CAP* 0.4 MG PO SCH (08:06)
[2018-03-04] MEDS: Nicotine PATCH 21 MG/24 HR* PATCH TRANSDERM SCH (08:06)
[2018-03-04] MEDS: Cyclobenzaprine TAB* 10 MG PO PRN (08:06)
[2018-03-04] MEDS: Folic Acid TAB* 1 MG PO SCH (08:06)
[2018-03-04] MEDS: Thiamine TAB* 100 MG TAB PO SCH (08:06)
[2018-03-04] MEDS: Mouth Piece, Nicotine* 1 EACH CARTRIDGE INH SCH (09:48)
--- NOTE | 2018-03-04 12:44 | PN ---
Progress Note - Progress Note Date of Service: 03/04/18 SOAP: Subjective: []Patient seen and examined at bedside today. He continues to have spasm of his right thigh, with no other complaints. Spasm is improved from yesterday. Denies chest pain, shortness of breath, dizziness, nausea. Objective: []General: Well appearing, NAD RLE: Right hip dressing changed, incision CDI. Thigh is soft. DF/PF intact, Sensation intact distally, DP2+, capillary refill less than two seconds distally. Calves supple and nontender without erythema, edema or palpable cords Assessment: []Right hip intertrochanteric fracture now POD 3 s/p short gamma nail 03/01/[address] Pa Plan: []WBAT PT/OT Dressing change daily with betadine, gauze, tape Heparin for DVT prophylaxis in house. Either lovenox or aspirin would be appropriate for DVT prophylaxis for 30 days post op at discharge. Ready for DC from orthopedic standpoint. DC per medicine when ready F/U in clinic with Dr Pa 10-14 days post op Vital Signs Temp 98.2 F 03/04/18 04:39 Pulse 87 03/04/18 04:39 Resp 16 03/04/18 10:20 BP 111/66 03/04/18 04:39 Pulse Ox 99 03/04/18 04:39 Intake & Output 03/03/18 03/04/18 03/04/18 18:59 06:59 18:59 Intake Total 740 560 240 Output Total 600 1600 Balance 140 -1040 240 Intake: Oral 740 560 240 Output: Urine 0 M[place] 1600 Residual 600 [place] 600 Laboratory Last Values WBC 6.9 10^3/ul (3.5-10.8) 03/03/18 04:51 RBC 2.69 10^6/ul (4.00-5.40) L 03/03/18 04:51 Hgb 9.3 g/dl (14.0-18.0) L 03/03/18 04:51 Hct 27 % (42-52) L 03/03/18 04:51 MCV 101 fL (80-94) H 03/03/18 04:51 MCH 35 pg (27-31) H 03/03/18 04:51 MCHC 35 g/dl (31-36) 03/03/18 04:51 RDW 13 % (10.5-15) 03/03/18 04:51 Plt Count 136 10^3/ul (150-450) L 03/03/18 04:51 MPV 8.8 fL (7.4-10.4) 03/03/18 04:51 Neut % (Auto) 61.0 % (38-83) 03/03/18 04:51 Lymph % (Auto) 27.4 % (25-47) 03/03/18 04:51 [place] % (Auto) 9.9 % (0-7) H 03/03/18 04:51 Eos % (Auto) 1.4 % (0-6) 03/03/18 04:51 Baso % (Auto) 0.3 % (0-2) 03/03/18 04:51 Absolute Neuts (auto) 4.2 10^3/ul (1.5-7.7) 03/03/18 04:51 Absolute Lymphs (auto) 1.9 10^3/ul (1.0-4.8) 03/03/18 04:51 Absolute Monos (auto) 0.7 10^3/ul (0-0.8) 03/03/18 04:51 Absolute Eos (auto) 0.1 10^3/ul (0-0.6) 03/03/18 04:51 Absolute Basos (auto) 0 10^3/ul (0-0.2) 03/03/18 04:51 Absolute Nucleated RBC 0 10^3/ul 03/03/18 04:51 Nucleated RBC % 0.1 03/03/18 04:51 INR (Anticoag Therapy) 0.86 (0.77-1.02) 03/02/18 05:27 APTT 28.1 seconds (26.0-36.3) 03/02/18 05:27 Sodium 136 mmol/L (135-145) 03/03/18 04:51 Potassium 3.7 mmol/L (3.5-5.0) 03/03/18 04:51 Chloride 103 mmol/L (101-111) 03/03/18 04:51 Carbon Dioxide 30 mmol/L (22-32) 03/03/18 04:51 Anion Gap 3 mmol/L (2-11) 03/03/18 04:51 BUN 8 mg/dL (6-24) 03/03/18 04:51 Creatinine 0.54 mg/dL (0.67-1.17) L 03/03/18 04:51 Est GFR ( Amer) 188.4 (>60) 03/03/18 04:51 Est GFR (Non-Af Amer) 155.7 (>60) 03/03/18 04:51 BUN/Creatinine Ratio 14.8 (8-20) 03/03/18 04:51 Glucose 125 mg/dL (70-100) H 03/03/18 04:51 Calcium 8.5 mg/dL (8.6-10.3) L 03/03/18 04:51 Phosphorus 2.6 mg/dL (2.5-5.0) 03/02/18 05:27 Magnesium 1.7 mg/dL (1.9-2.7) L 03/02/18 05:27 Total Bilirubin 0.70 mg/dL (0.2-1.0) 03/02/18 05:27 AST 48 U/L (13-39) H 03/02/18 05:27 ALT 34 U/L (7-52) 03/02/18 05:27 Alkaline Phosphatase 47 U/L (34-104) 03/02/18 05:27 Total Creatine Kinase 696 U/L (10-223) H 03/02/18 05:27 Total Protein 5.9 g/dL (6.4-8.9) L 03/02/18 05:27 Albumin 3.2 g/dL (3.2-5.2) 03/02/18 05:27 Globulin 2.7 g/dL (2-4) 03/02/18 05:27 Albumin/Globulin Ratio 1.2 (1-3) 03/02/18 05:27 Urine Color Yellow 03/01/18 11:15 Urine Appearance Cloudy 03/01/18 11:15 Urine pH 5.0 (5-9) 03/01/18 11:15 Ur Specific [place] 1.015 (1.010-1.030) 03/01/18 11:15 Urine Protein Negative (Negative) 03/01/18 11:15 Urine Ketones 2+ (Negative) A 03/01/18 11:15 Urine Blood 2+ (Negative) A 03/01/18 11:15 Urine Nitrate Negative (Negative) 03/01/18 11:15 Urine Bilirubin Negative (Negative) 03/01/18 11:15 Urine Urobilinogen Negative (Negative) 03/01/18 11:15 Ur Leukocyte Esterase Negative (Negative) 03/01/18 11:15 Urine WBC (Auto) Trace(0-5/hpf) (Absent) 03/01/18 11:15 Urine RBC (Auto) 2+(6-10/hpf) (Absent) A 03/01/18 11:15 Urine Bacteria Absent (Absent) 03/01/18 11:15 Urine Glucose Negative (Negative) 03/01/18 11:15 Blood Type A Positive 02/28/18 22:34 Antibody Screen Negative 02/28/18 22:34
[2018-03-04] MEDS ORDERED: traMADol TAB* 50 MG PO PRN ×2 (12:47→12:49)
[2018-03-04] MEDS: Docusate CAP* 100 MG PO SCH ×2 (15:13→20:46)
[2018-03-04] MEDS: Polyethylene Glycol 3350* 17 GM PACKET PO SCH (15:13)
[2018-03-04] MEDS: Senna TAB PO SCH (15:13)
[2018-03-04 15:37] LABS: ABS Basophils 0 10^3/ul (0-0.2); ABS Eosinophils 0.2 10^3/ul (0-0.6); ABS Lymphocytes 1.4 10^3/ul (1.0-4.8); ABS Monocytes 0.7 10^3/ul (0-0.8); ABS Neutrophils 3.8 10^3/ul (1.5-7.7); ABS Nucleated RBC 0 10^3/ul; Eosinophil % 2.5 % (0-6); Hematocrit 27 % (42-52); Hemoglobin 9.4 g/dl (14.0-18.0); Lymphocyte % 23.7 % (25-47); Mean Corpuscular HGB Conc 35 g/dl (31-36); Mean Corpuscular Hemoglobin 35 pg (27-31); Mean Corpuscular Volume 100 fL (80-94); Mean Platelet Volume 7.7 fL (7.4-10.4); Nucleated Red Blood Cells % 0; Platelet Count 184 10^3/ul (150-450); Red Blood Count 2.68 10^6/ul (4.00-5.40); Red Cell Distribution Width 13 % (10.5-15)
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
[2018-03-04] MEDS ORDERED: Magnesium CITRATE* 300 ML BTL PO PRN (19:00)
[2018-03-04] MEDS: Nicotine Patch Removal NOTE PATCH OFF SCH (20:46)
[2018-03-04] MEDS: Nicotine Inhaler* 10 MG AMP INH PRN (20:46)
[2018-03-05] MEDS: Heparin VIAL(*) 5000 UNITS/ML VIAL (FIVE THOUSAND) SUBCUT SCH ×3 (05:43→22:22)
[2018-03-05] MEDS: HYDROcodone/ACETAMIN 5-325 MG* 1 TAB PO PRN ×3 (06:13→14:41)
[2018-03-05] MEDS: Nicotine PATCH 21 MG/24 HR* PATCH TRANSDERM SCH (08:44)
[2018-03-05] MEDS: Docusate CAP* 100 MG PO SCH ×2 (08:44→21:05)
[2018-03-05] MEDS: Tamsulosin CAP* 0.4 MG PO SCH (08:44)
[2018-03-05] MEDS: Folic Acid TAB* 1 MG PO SCH (08:44)
[2018-03-05] MEDS: Thiamine TAB* 100 MG TAB PO SCH (08:44)
[2018-03-05] MEDS: Multivitamins/Minerals TAB PO SCH (08:44)
[2018-03-05] MEDS: Mouth Piece, Nicotine* 1 EACH CARTRIDGE INH SCH (08:45)
[2018-03-05] MEDS: Polyethylene Glycol 3350* 17 GM PACKET PO SCH (08:45)
[2018-03-05] MEDS: Senna TAB PO SCH (08:45)
[2018-03-05] MEDS ORDERED: HYDROcodone/ACETAMIN 5-325 MG* 1 TAB PO PRN (16:21)
[2018-03-05] MEDS ORDERED: Ibuprofen TAB* 600 MG PO PRN (16:23)
[2018-03-05] MEDS ORDERED: Acetaminophen TAB* 325 MG PO PRN (16:24)
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
[2018-03-05] MEDS: Nicotine Patch Removal NOTE PATCH OFF SCH (21:05)
[2018-03-05] MEDS: Ferrous Sulfate TAB* 325 MG PO SCH (21:05)
[2018-03-06] MEDS ORDERED: Omeprazole CAP* 20 MG PO SCH (06:00)
[2018-03-06] MEDS: Heparin VIAL(*) 5000 UNITS/ML VIAL (FIVE THOUSAND) SUBCUT SCH (06:10)
[2018-03-06 06:22] LABS: ABS Basophils 0 10^3/ul (0-0.2); ABS Eosinophils 0.2 10^3/ul (0-0.6); ABS Lymphocytes 1.7 10^3/ul (1.0-4.8); ABS Monocytes 0.9 10^3/ul (0-0.8); ABS Neutrophils 2.7 10^3/ul (1.5-7.7); ABS Nucleated RBC 0 10^3/ul; Eosinophil % 3.7 % (0-6); Hematocrit 29 % (42-52); Lymphocyte % 30.2 % (25-47); Mean Corpuscular HGB Conc 35 g/dl (31-36); Mean Corpuscular Hemoglobin 35 pg (27-31); Mean Corpuscular Volume 100 fL (80-94); Mean Platelet Volume 7.3 fL (7.4-10.4); Nucleated Red Blood Cells % 0.1; Platelet Count 267 10^3/ul (150-450); Red Blood Count 2.88 10^6/ul (4.00-5.40); Red Cell Distribution Width 13 % (10.5-15); White Blood Count 5.6 10^3/ul (3.5-10.8)
[2018-03-06 06:42] LABS: EGFR Non-African American 146.3 (>60)
--- NOTE | 2018-03-06 08:16 | PN ---
Progress Note - Progress Note Date of Service: 03/06/18 SOAP: Subjective: POD #5 Right hip ORIF with gamma nail. States that he is doing ok, c/o of pain only when getting in and out of bed. Denies CP/SOB, n/v, f/c or calf pain Objective: Vitals: Temp Pulse Resp BP Pulse Ox 97.7 F 89 16 113/66 99 03/06/18 04:36 03/06/18 04:36 03/06/18 04:36 03/06/18 04:36 03/06/18 04:36 Gen: A&Ox3, NAD at rest sitting in chair Right hip: Incisions C/D/I. Large surrounding ecchymosis, no erythema. +f/e at knee, ankle and MTPs. N/V intact Laboratory Results - last 24 hr 18 03/06/18 05:50 05:50 WBC 5.6 RBC 2.88 L Hgb 10.0 L Hct 29 L MCV 100 H MCH 35 H MCHC 35 RDW 13 Plt Count 267 MPV 7.3 L Neut % (Auto) 49.1 Lymph % (Auto) 30.2 [place] % (Auto) 16.3 H Eos % (Auto) 3.7 Baso % (Auto) 0.7 Absolute Neuts (auto) 2.7 Absolute Lymphs (auto) 1.7 Absolute Monos (auto) 0.9 H Absolute Eos (auto) 0.2 Absolute Basos (auto) 0 Absolute Nucleated RBC 0 Nucleated RBC % 0.1 Sodium 134 L Potassium 4.7 Chloride 101 Carbon Dioxide 28 Anion Gap 5 BUN 14 Creatinine 0.57 L Est GFR ( Amer) 177.0 Est GFR (Non-Af Amer) 146.3 BUN/Creatinine Ratio 24.6 H Glucose 112 H Calcium 9.1 Phosphorus 4.1 Magnesium 1.7 L Assessment: POD #5 Right hip ORIF Plan: Ok for d/c once home care is set and cleared by medicine WBAT RLE with walker Staple removal 14 days post op, dry dressing changes as needed F/u with Dr. Pa 2-3 weeks
[2018-03-06] MEDS ORDERED: Magnesium Sulfate 2 GM IV* 2 GM/50 ML BAG IVPB ONE (09:00)
[2018-03-06] MEDS: Multivitamins/Minerals TAB PO SCH (10:26)
[2018-03-06] MEDS: Senna TAB PO SCH (10:26)
[2018-03-06] MEDS: Polyethylene Glycol 3350* 17 GM PACKET PO SCH (10:26)
[2018-03-06] MEDS: Tamsulosin CAP* 0.4 MG PO SCH (10:26)
[2018-03-06] MEDS: Thiamine TAB* 100 MG TAB PO SCH (10:26)
[2018-03-06] MEDS: Nicotine PATCH 21 MG/24 HR* PATCH TRANSDERM SCH (10:26)
[2018-03-06] MEDS: Ferrous Sulfate TAB* 325 MG PO SCH (10:26)
[2018-03-06] MEDS: Docusate CAP* 100 MG PO SCH (10:26)
[2018-03-06] MEDS: Folic Acid TAB* 1 MG PO SCH (10:26)
[2018-03-06] MEDS: Mouth Piece, Nicotine* 1 EACH CARTRIDGE INH SCH (10:26)
[2018-03-06 11:57] VITALS: BP 135/76
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
== END 2018-03-06 14:05 | disposition home health service (06) | DRG 308 ==
LOC: ED 21:23 → MED 03-01 00:46 → SSU 03-01 17:20
PROVIDERS: ADMIT Internal Medicine; ATTEND Internal Medicine
PROC: 0QS634Z Reposition Right Upper Femur with Internal Fixation Device, Percutaneous Approach (ICD-10-PCS; principal; 2018-03-01 14:00)
PROC: 0T9B70Z Drainage of Bladder with Drainage Device, Via Natural or Artificial Opening (ICD-10-PCS; 2018-03-03)
DX: S72.141A Displaced intertrochanteric fracture of right femur, initial encounter for closed fracture (principal); T79.6XXA Traumatic ischemia of muscle, initial encounter; D62 Acute posthemorrhagic anemia; E87.1 Hypo-osmolality and hyponatremia; J44.9 Chronic obstructive pulmonary disease, unspecified; F10.20 Alcohol dependence, uncomplicated; Y90.9 Presence of alcohol in blood, level not specified; E53.8 Deficiency of other specified B group vitamins; N40.1 Benign prostatic hyperplasia with lower urinary tract symptoms; R33.8 Other retention of urine; R21 Rash and other nonspecific skin eruption; F17.290 Nicotine dependence, other tobacco product, uncomplicated; Z23 Encounter for immunization; Z86.73 Personal history of transient ischemic attack (TIA), and cerebral infarction without residual deficits; V87.8XXA Person injured in other specified noncollision transport accidents involving motor vehicle (traffic), initial encounter; Y93.55 Activity, bike riding; Y92.89 Other specified places as the place of occurrence of the external cause
CPT/HCPCS: 36415; 71045; 72170; 74019; 76000; 80048; 80053; 81003; 81015; 82550; 83735; 84100; 85025; 85610; 85730; 86850; 86900; 86901; 87086; 90686; 90732; 93005; 94640; 99284; A9270-GY; C1713; C1769; C1776; J0690; J1100; J1170; J1644; J1885; J2250; J2270; J2405; J2704; J2765; J3010; J3411; J3475

== ENCOUNTER 2018-03-09 17:34 | Inpatient (IN) | payer MEDICAID ==
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
[2018-03-09 19:11] LABS: ABS Basophils 0 10^3/ul (0-0.2); ABS Eosinophils 0.2 10^3/ul (0-0.6); ABS Lymphocytes 1.7 10^3/ul (1.0-4.8); ABS Monocytes 1.2 10^3/ul (0-0.8); ABS Neutrophils 7.1 10^3/ul (1.5-7.7); ABS Nucleated RBC 0 10^3/ul; Eosinophil % 1.6 % (0-6); Hematocrit 30 % (42-52); Hemoglobin 10.5 g/dl (14.0-18.0); Lymphocyte % 16.5 % (25-47); Mean Corpuscular HGB Conc 35 g/dl (31-36); Mean Corpuscular Hemoglobin 35 pg (27-31); Mean Corpuscular Volume 99 fL (80-94); Mean Platelet Volume 6.8 fL (7.4-10.4); Nucleated Red Blood Cells % 0; Platelet Count 454 10^3/ul (150-450); Red Blood Count 3.04 10^6/ul (4.00-5.40); Red Cell Distribution Width 13 % (10.5-15); White Blood Count 10.1 10^3/ul (3.5-10.8)
[2018-03-09 19:34] LABS: EGFR Non-African American 117.4 (>60)
[2018-03-09] MEDS ORDERED: Iohexol 300* (CONTRAST) 10 ML SDV IV ONE (19:40)
[2018-03-09] MEDS ORDERED: Ondansetron INJ* 2 MG/ML VIAL IV PRN (20:10)
[2018-03-09] MEDS ORDERED: Acetaminophen TAB* 325 MG PO PRN (20:10)
[2018-03-09] MEDS ORDERED: NS 0.9% 1000 ML* 1,000 ML IV ONE ×2 (20:10→21:00)
[2018-03-09] MEDS ORDERED: NS 0.9% 1000 ML* 1,000 ML IV SCH (20:15)
[2018-03-09] MEDS ORDERED: Piperacillin/Tazobac ADVAN(*) 3.375 GM in NS 0.9% 100 ML* 100 ML IVPB ONE (20:17)
[2018-03-09] MEDS ORDERED: Albuterol 2.5 MG/3 ML NEB.SOL* (0.083%) INH PRN (20:54)
[2018-03-09] MEDS ORDERED: Zosyn per Pharmacy* NOTE FOLLOW UP SCH (21:00)
[2018-03-09 21:09] LABS: INR 0.91 (0.77-1.02)
[2018-03-09 21:39] LABS: Urine Appearance Cloudy; Urine Blood 2+ (Negative); Urine Color Yellow; Urine Ketones Negative (Negative); Urine Protein 2+(100 mg/dL) (Negative); Urine Urobilinogen Negative (Negative)
[2018-03-09] MEDS: Cefepime 2 GM in Dextrose(*) 2 GM/50 ML BAG IV SCH (22:40)
[2018-03-09] MEDS: Heparin VIAL(*) 5000 UNITS/ML VIAL (FIVE THOUSAND) SUBCUT SCH (22:42)
[2018-03-09] MEDS: Morphine VIAL* 4 MG/ML VIAL (1 ml vial) IV PRN (22:42)
[2018-03-09] MEDS: Cyclobenzaprine TAB* 10 MG PO PRN (22:43)
[2018-03-09] MEDS: Omeprazole CAP* 20 MG PO SCH (22:43)
[2018-03-09] MEDS: hydrOXYzine HCL TAB* 50 MG PO SCH (22:43)
[2018-03-09] MEDS: Docusate CAP* 100 MG PO SCH (22:44)
[2018-03-09] MEDS: Nabumetone TAB* 500 MG PO SCH (22:44)
[2018-03-09] MEDS: Ferrous Sulfate TAB* 325 MG PO SCH (22:44)
[2018-03-09] MEDS: Mometasone/Formoter 200/5 MDI INH SCH (22:44)
[2018-03-09 23:17] LABS: Urine Red Blood Cell 3+(>10/hpf) (Absent); Urine White Blood Cell 3+(>20/hpf) (Absent)
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
[2018-03-10 05:20] LABS: ABS Basophils 0.1 10^3/ul (0-0.2); ABS Eosinophils 0.2 10^3/ul (0-0.6); ABS Lymphocytes 1.9 10^3/ul (1.0-4.8); ABS Monocytes 1.1 10^3/ul (0-0.8); ABS Neutrophils 5.6 10^3/ul (1.5-7.7); ABS Nucleated RBC 0 10^3/ul; Eosinophil % 2.3 % (0-6); Hematocrit 27 % (42-52); Hemoglobin 9.4 g/dl (14.0-18.0); Lymphocyte % 21.4 % (25-47); Mean Corpuscular HGB Conc 35 g/dl (31-36); Mean Corpuscular Hemoglobin 35 pg (27-31); Mean Corpuscular Volume 100 fL (80-94); Mean Platelet Volume 6.9 fL (7.4-10.4); Nucleated Red Blood Cells % 0; Platelet Count 410 10^3/ul (150-450); Red Blood Count 2.73 10^6/ul (4.00-5.40); Red Cell Distribution Width 13 % (10.5-15); White Blood Count 8.8 10^3/ul (3.5-10.8)
[2018-03-10] MEDS: Heparin VIAL(*) 5000 UNITS/ML VIAL (FIVE THOUSAND) SUBCUT SCH ×3 (05:45→21:28)
[2018-03-10 05:56] LABS: EGFR Non-African American 111.7 (>60)
[2018-03-10] MEDS: Nabumetone TAB* 500 MG PO SCH ×2 (09:07→21:29)
[2018-03-10] MEDS: Tamsulosin CAP* 0.4 MG PO SCH (09:09)
[2018-03-10] MEDS: Thiamine TAB* 100 MG TAB PO SCH (09:09)
[2018-03-10] MEDS: BuPROPion XL* 300 MG TAB.XL PO SCH (09:09)
[2018-03-10] MEDS: Folic Acid TAB* 1 MG PO SCH (09:11)
[2018-03-10] MEDS: Docusate CAP* 100 MG PO SCH ×2 (09:11→21:29)
[2018-03-10] MEDS: Aspirin TAB* 325 MG PO SCH (09:11)
[2018-03-10] MEDS: Omeprazole CAP* 20 MG PO SCH ×2 (09:12→21:29)
[2018-03-10] MEDS: Ferrous Sulfate TAB* 325 MG PO SCH ×2 (09:12→21:29)
[2018-03-10] MEDS: oxyCODONE/Acetamin 5/325 MG* TAB PO PRN ×3 (09:13→21:40)
[2018-03-10] MEDS: Multivitamins/Minerals TAB PO SCH (09:14)
[2018-03-10] MEDS: hydrOXYzine HCL TAB* 50 MG PO SCH ×2 (09:14→21:29)
[2018-03-10] MEDS: Finasteride TAB* 5 MG PO SCH (09:15)
[2018-03-10] MEDS: CMCS Pravastatin (NF) 20 MG TAB PO SCH (09:16)
[2018-03-10] MEDS: Morphine VIAL* 4 MG/ML VIAL (1 ml vial) IV PRN ×2 (10:13→19:30)
--- NOTE | 2018-03-10 10:22 | CONSULT ---
Consult Consult: Orthopedic Consult HPI: This pt is a 57 y/o male who presented to [facility] via EMS with complaints of right hip pain after having a Gamma nail that was done on 03/01/[address] Pa. Pt states he lives at home alone and is unable to take care of himself independently. He was seen this morning and states that the pain is not in his hip but in his calf. He states that he does have some bruising about his hip but otherwise finds that it is not painful. He states that he is able to ambulate and put pressure on the leg but when he does he has calf pain. Denies chest pain, SOB, nausea, vomiting, or any other complaints. Allergies/Adverse Reactions: Allergies Allergy/AdvReac Type Severity Reaction Status Date / Time No Known Allergies Allergy Verified 11/10/16 20:51 PMH/Surg Hx/FS Hx/Imm Hx Endocrine/Hematology History: Denies: Hx Diabetes Cardiovascular History: Denies: Hx Hypertension History: Denies: Hx Dialysis, Hx Renal Disease Sensory History: Denies: Hx Contacts or Glasses, Hx Hearing Aid Opthamlomology History: Denies: Hx Contacts or Glasses Family History Negative: Cardiac Disease, Hypertension, Diabetes Social History Alcohol Use: Daily Alcohol Amount: "at least 6 drinks per day" Hx Substance Use: No Substance Use Type: Reports: None Hx Tobacco Use: Yes Smoking Status (MU): Heavy Every Day Tobacco Smoker Type: Cigarettes Review of Systems General: Denies fevers, chills or night sweats. No known anesthesia problems. HEENT: denies MOLINA, lightheadedness or syncopal episodes Cardiothoracic: Denies for chest pain, heart palpitations, or edema Pulmonary: Denies for SOB with exertion, chronic cough, COPD or asthma GI: denies N/V/D/C or GERD : Denies for nocturia, urinary frequency, urinary urgency, history of UTIs or kidney problems Musculoskeletal: Denies for chronic or intermittent back pain or fractures Neuro: Denies paresthesias, numbness, seizure, stroke, epilepsy, depression or anxiety Integumentary: Denies abrasions, lesions, rashes, lumps or open sores Physical Exam Vital Signs Temp 97.6 F 03/10/18 03:15 Pulse 96 03/10/18 03:15 Resp 18 03/10/18 10:13 BP 105/61 11/14/18 03:15 Pulse Ox 100 03/10/18 04:56 Intake & Output 03/09/18 03/10/18 03/10/18 18:59 06:59 18:59 Intake Total 1159 Output Total 2450 Balance -1291 Weight 118 lb 123 lb 8 oz Intake: IV Fluids 614 NS (0.9%) 564 IVPB 65 ABX - CEFEPIME 65 Oral 480 Output: Mckoy 2450 Other: # Bowel Movements 0 General: Alert & oriented, 57 year old in no acute distress. Appropriate mood and affect HEENT: Normocephalic, atraumatic, hearing and vision grossly intact Cardio: regular rate and rhythm, S1 S2, no murmurs appreciated, no edema Pulmonary: Lungs clear to auscultation bilaterally, no wheezes, rales or rhonchi Musculoskeletal/Neurologic: Right hip was inspected. There are gunnar in place. Incisions are clean, dry and intact. There is bruising around the entire hip but is non painful to palpation. There is no erythema or drainage present. Pt is able to move hip without pain. He is able to ambulate with a walker with no pain in the hip. He does have TTP along the posterior calf and states that he has calf pain with ambulation. He is NVI intact and 2+ DP pulse. Imaging: CT of the hip and pelvis was obtained and reviewed. There is a report of mild trochanteric bursitis. No evidence of fracture or abnormality. - Course Assessment/Plan: 1. S/P Gamma Nail of the right hip on 03/01/2018 2. Pain in the right calf Plan: 1. At this point in time the pt does not have any concerning symptoms of infection in the hip. He is able to move his hip without pain. Has no constitutional symptoms present, no drainage or erythema and a negative CT scan. We feel the hip is doing quite well at this point. Gunnar are still in place and they should be taken out after 14 days from surgery. 2. We will obtain a venous Doppler to assess for possible DVT.
[2018-03-10] MEDS: Cefepime 2 GM in Dextrose(*) 2 GM/50 ML BAG IV SCH ×2 (10:40→21:29)
[2018-03-10] MEDS: Cyclobenzaprine TAB* 10 MG PO PRN ×2 (10:54→17:37)
--- NOTE | 2018-03-10 15:05 | PN ---
Subjective Date of Service: 03/10/18 Interval History: Patient is still in moderate pain in his leg which is worse with movement and 0/ 10 at rest. Patient states the pain shoots down the back of his leg with movement and that it is only getting slowly better from his surgery. Patient states that he has difficulty standing up and doing ADLs for his lower body. Patient states he has no trouble walking. Patient had an episode of an extreme cold chill overnight. Patient denies CP, SOB, N/V, abdominal pain, dizziness of standing, or other alarming symptoms. Family History: Unchanged from Admission Social History: Unchanged from Admission Past Medical History: Unchanged from Admission Objective Active Medications: Acetaminophen (Tylenol Tab*) 650 mg PO Q4H PRN PRN Reason: FEVER/PAIN Last Admin: 03/09/18 20:39 Dose: 650 mg Albuterol (Ventolin 2.5 Mg/3 Ml Neb.Trish*) 2.5 mg INH Q2H PRN PRN Reason: SOB/WHEEZING Aspirin (Aspirin Tab*) 325 mg PO DAILY [facility] Last Admin: 03/10/18 09:11 Dose: 325 mg Bupropion HCl (Bupropion Xl*) 300 mg PO DAILY [facility] Last Admin: 03/10/18 09:09 Dose: 300 mg Cyclobenzaprine HCl (Flexeril Tab*) 10 mg PO TID PRN PRN Reason: PAIN Last Admin: 03/10/18 10:54 Dose: 10 mg Docusate Sodium (Colace Cap*) 100 mg PO BID [facility] Last Admin: 03/10/18 09:11 Dose: 100 mg Ferrous Sulfate (Ferrous Sulfate Tab*) 325 mg PO BID [facility] Last Admin: 03/10/18 09:12 Dose: 325 mg Finasteride (Proscar Tab*) 5 mg PO DAILY [facility]; Protocol Last Admin: 03/10/18 09:15 Dose: 5 mg Folic Acid (Folvite Tab*) 1 mg PO DAILY [facility] Last Admin: 03/10/18 09:11 Dose: 1 mg Heparin Sodium (Porcine) (Heparin Vial(*)) 5,000 units SUBCUT Q8HR [facility] Last Admin: 03/10/18 05:45 Dose: 5,000 units Hydroxyzine HCl (Atarax Tab*) 100 mg PO BID [facility] Last Admin: 03/10/18 09:14 Dose: 100 mg Cefepime HCl (Maxipime 2 Gm In Dextrose Duplex (*)) 2 gm in 50 mls @ 100 mls/ hr IV Q12H [facility] Last Admin: 03/10/18 10:40 Dose: 100 mls/hr Mometasone Furoate/Formoterol Fumar (Dulera 200/5 Mdi*) 2 puff INH BID [facility] Last Admin: 03/09/18 22:44 Dose: 2 puff Morphine Sulfate (Morphine Vial*) 2 mg IV Q4H PRN PRN Reason: PAIN - MILD Last Admin: 03/10/18 10:13 Dose: 2 mg Multivitamins/Minerals (Theragran/Minerals Tab*) 1 tab PO DAILY [facility] Last Admin: 03/10/18 09:14 Dose: 1 tab Nabumetone (Relafen Tab*) 500 mg PO BID [facility] Last Admin: 03/10/18 09:07 Dose: 500 mg Omeprazole (Prilosec Cap*) 20 mg PO BID [facility] Last Admin: 03/10/18 09:12 Dose: 20 mg Ondansetron HCl (Zofran Inj*) 4 mg IV Q6H PRN PRN Reason: NAUSEA Oxycodone/Acetaminophen (Percocet 5/325 Tab*) 1 tab PO Q4H PRN PRN Reason: PAIN Last Admin: 03/10/18 09:13 Dose: 1 tab Pravastatin Sodium (Pravachol (Nf)) 10 mg PO DAILY [facility]; Protocol Last Admin: 03/10/18 09:16 Dose: 10 mg Tamsulosin HCl (Flomax Cap*) 0.4 mg PO DAILY [facility] Last Admin: 03/10/18 09:09 Dose: 0.4 mg Thiamine HCl (Vitamin B-1 Tab*) 100 mg PO DAILY [facility] Last Admin: 03/10/18 09:09 Dose: 100 mg Vital Signs - 8 hr 03/10/18 03/10/18 03/10/18 07:59 09:13 10:13 Temperature 98.1 F Pulse Rate 100 Respiratory 18 18 18 Rate Blood Pressure 144/61 (mmHg) O2 Sat by Pulse 100 Oximetry 03/10/18 03/10/18 03/10/18 10:54 10:59 11:17 Temperature 98.0 F Pulse Rate 95 Respiratory 19 20 20 Rate Blood Pressure 106/66 (mmHg) O2 Sat by Pulse 100 Oximetry Oxygen Devices in Use Now: None Appearance: Patient is a 57yo male who appears stated age and is sitting in the bed in NAD. Eyes: No Scleral Icterus, PERRLA Ears/Nose/Mouth/Throat: NL Teeth, Lips, Gums, Clear Oropharnyx, Mucous Membranes Moist Neck: NL Appearance and Movements; NL JVP, Trachea Midline Respiratory: Symmetrical Chest Expansion and Respiratory Effort, Clear to Auscultation Cardiovascular: NL Sounds; No Murmurs; No JVD, RRR, No Edema Abdominal: NL Sounds; No Tenderness; No Distention, - - Serra in place Lymphatic: No Cervical Adenopathy Extremities: No Edema, - - Ecchymosis on right hip and posterior aspect of right thigh. Skin: No Nodules or Sclerosis Neurological: Alert and Oriented x 3, NL Sensation, NL Muscle Strength and Tone , - - CN II-XII intact. Strength diminished in RLE throughout. Normal reflexes. No sensory changes. Result Diagrams: 03/10/18 05:12 03/10/18 05:12 Microbiology and Other Data: Microbiology 03/09/18 20:21 Urine Culture - Preliminary Urine Klebsiella Pneumoniae 03/09/18 23:00 Influenza Types A,B Antigen - Final Nasal Specimen received for Influenza A/B Molecular testing Assess/Plan/Problems-Billing Assessment: Patient is a 57yo male with a PMH for a recent right intertrochanteric fracture with surgical fixation after a fall earlier this month as well as COPD, Alcohol abuse, and recent urinary retention who presents with sepsis from a urinary tract infection related to his serra catheter as well as an inability to take care of himself at home who is admitted for IV antibiotics and placement. - Patient Problems (1) Sepsis Current Visit: Yes Status: Acute Comment: - With tachycardia, fever - Lactic normal without evidence of end-organ dysfunction - From complicated CAUTI - Blood cultures pending - Got fluid bolus and continue Cefepime (2) Urinary tract infection Current Visit: Yes Status: Acute Comment: - Catheter associated. - Continue Cefepime - Change catheter when sensitivities available. (3) Urinary retention Current Visit: No Status: Acute Code(s): R33.9 - RETENTION OF URINE, UNSPECIFIED SNOMED Code(s): 297646148 Comment: - Failed previous void trial with high residuals - On flomax, start finasteride - Follow up outpatient urology for removal and possible urodynamic testing. Not likely due to spinal pathology due to non-radicular pattern of leg pain. (4) Anemia Current Visit: No Status: Acute Code(s): D64.9 - ANEMIA, UNSPECIFIED SNOMED Code(s): 109892947 Comment: - From recent acute blood loss - H/H stable. - Continue Iron - Macrocytic, possibly alcohol related. (5) COPD (chronic obstructive pulmonary disease) Current Visit: No Status: Acute Code(s): J44.9 - CHRONIC OBSTRUCTIVE PULMONARY DISEASE, UNSPECIFIED SNOMED Code(s): 79443095 Comment: - No exacerbation - Nebulizers PRN (6) EtOH dependence Current Visit: No Status: Acute Code(s): F10.20 - ALCOHOL DEPENDENCE, UNCOMPLICATED SNOMED Code(s): 63929109 Comment: - Continue thiamine and folic acid - Recommend Abstinence. (7) Fracture, intertrochanteric, right femur Current Visit: No Status: Acute Code(s): S72.141A - DISPLACED INTERTROCHANTERIC FRACTURE OF RIGHT FEMUR, INIT SNOMED Code(s): 156779227 Comment: - Appreciate Ortho input. - Pain control - PT/OT. (8) DVT prophylaxis Current Visit: No Status: Acute Code(s): JLA6990 - SNOMED Code(s): 708532691 Comment: - Heparin SubQ intpatient Status and Disposition: Inpatient for placement. Unsafe to discharge home due to severe infection and inability to care for self in a safe manner.
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
[2018-03-11 06:03] LABS: ABS Basophils 0.1 10^3/ul (0-0.2); ABS Eosinophils 0.3 10^3/ul (0-0.6); ABS Monocytes 0.8 10^3/ul (0-0.8); ABS Nucleated RBC 0 10^3/ul; Hematocrit 28 % (42-52); Hemoglobin 9.8 g/dl (14.0-18.0); Lymphocyte % 21.8 % (25-47); Mean Corpuscular HGB Conc 35 g/dl (31-36); Mean Corpuscular Hemoglobin 35 pg (27-31); Mean Corpuscular Volume 100 fL (80-94); Mean Platelet Volume 7.2 fL (7.4-10.4); Nucleated Red Blood Cells % 0; Platelet Count 475 10^3/ul (150-450); Red Blood Count 2.77 10^6/ul (4.00-5.40); Red Cell Distribution Width 13 % (10.5-15); White Blood Count 9.1 10^3/ul (3.5-10.8)
[2018-03-11 06:18] LABS: EGFR Non-African American 125.7 (>60)
[2018-03-11] MEDS: Heparin VIAL(*) 5000 UNITS/ML VIAL (FIVE THOUSAND) SUBCUT SCH ×3 (06:29→21:42)
[2018-03-11] MEDS ORDERED: Magnesium Sulfate 2 GM IV* 2 GM/50 ML BAG IVPB ONE (07:30)
[2018-03-11] MEDS: Aspirin TAB* 325 MG PO SCH (08:25)
[2018-03-11] MEDS: Tamsulosin CAP* 0.4 MG PO SCH (08:25)
[2018-03-11] MEDS: Omeprazole CAP* 20 MG PO SCH ×2 (08:26→21:40)
[2018-03-11] MEDS: hydrOXYzine HCL TAB* 50 MG PO SCH ×2 (08:26→21:38)
[2018-03-11] MEDS: Docusate CAP* 100 MG PO SCH ×2 (08:26→21:39)
[2018-03-11] MEDS: Multivitamins/Minerals TAB PO SCH (08:27)
[2018-03-11] MEDS: Ferrous Sulfate TAB* 325 MG PO SCH ×2 (08:27→21:38)
[2018-03-11] MEDS: oxyCODONE/Acetamin 5/325 MG* TAB PO PRN ×3 (08:27→19:29)
[2018-03-11] MEDS: CMCS Pravastatin (NF) 20 MG TAB PO SCH (08:28)
[2018-03-11] MEDS: Thiamine TAB* 100 MG TAB PO SCH (08:28)
[2018-03-11] MEDS: Folic Acid TAB* 1 MG PO SCH (08:28)
[2018-03-11] MEDS: Nabumetone TAB* 500 MG PO SCH ×2 (08:29→21:39)
[2018-03-11] MEDS: BuPROPion XL* 300 MG TAB.XL PO SCH (08:30)
[2018-03-11] MEDS: Finasteride TAB* 5 MG PO SCH (08:30)
[2018-03-11] MEDS: Cefepime 2 GM in Dextrose(*) 2 GM/50 ML BAG IV SCH ×2 (10:18→21:34)
[2018-03-11] MEDS: Cyclobenzaprine TAB* 10 MG PO PRN (10:36)
--- NOTE | 2018-03-11 13:41 | PN ---
Subjective Date of Service: 03/11/18 Interval History: HOSPITALIST PROGRESS NOTE Patient seen and examined at bedside. Care reviewed and d/w Camila Martinez RN. He c/o of right hip/thigh pain with movement, but states it's tolerable. Able to ambulate with walker. Offers no other complaints. [facility] ([facility] [place] [facility]. [place] [facility]. [place]). Family History: Unchanged from Admission Social History: Unchanged from Admission Past Medical History: Unchanged from Admission Objective Active Medications: Acetaminophen (Tylenol Tab*) 650 mg PO Q4H PRN PRN Reason: FEVER/PAIN Last Admin: 03/09/18 20:39 Dose: 650 mg Albuterol (Ventolin 2.5 Mg/3 Ml Neb.Trish*) 2.5 mg INH Q2H PRN PRN Reason: SOB/WHEEZING Aspirin (Aspirin Tab*) 325 mg PO DAILY [facility] Last Admin: 03/11/18 08:25 Dose: 325 mg Bupropion HCl (Bupropion Xl*) 300 mg PO DAILY [facility] Last Admin: 03/11/18 08:30 Dose: 300 mg Cyclobenzaprine HCl (Flexeril Tab*) 10 mg PO TID PRN PRN Reason: PAIN Last Admin: 03/11/18 10:36 Dose: 10 mg Docusate Sodium (Colace Cap*) 100 mg PO BID [facility] Last Admin: 03/11/18 08:26 Dose: 100 mg Ferrous Sulfate (Ferrous Sulfate Tab*) 325 mg PO BID [facility] Last Admin: 03/11/18 08:27 Dose: 325 mg Finasteride (Proscar Tab*) 5 mg PO DAILY [facility]; Protocol Last Admin: 03/11/18 08:30 Dose: 5 mg Folic Acid (Folvite Tab*) 1 mg PO DAILY [facility] Last Admin: 03/11/18 08:28 Dose: 1 mg Heparin Sodium (Porcine) (Heparin Vial(*)) 5,000 units SUBCUT Q8HR [facility] Last Admin: 03/11/18 06:29 Dose: 5,000 units Hydroxyzine HCl (Atarax Tab*) 100 mg PO BID [facility] Last Admin: 03/11/18 08:26 Dose: 100 mg Cefepime HCl (Maxipime 2 Gm In Dextrose Duplex (*)) 2 gm in 50 mls @ 100 mls/ hr IV Q12H [facility] Last Admin: 03/11/18 10:18 Dose: 100 mls/hr Mometasone Furoate/Formoterol Fumar (Dulera 200/5 Mdi*) 2 puff INH BID [facility] Morphine Sulfate (Morphine Vial*) 2 mg IV Q4H PRN PRN Reason: PAIN - MILD Last Admin: 03/10/18 19:30 Dose: 2 mg Multivitamins/Minerals (Theragran/Minerals Tab*) 1 tab PO DAILY [facility] Last Admin: 03/11/18 08:27 Dose: 1 tab Nabumetone (Relafen Tab*) 500 mg PO BID [facility] Last Admin: 03/11/18 08:29 Dose: 500 mg Omeprazole (Prilosec Cap*) 20 mg PO BID [facility] Last Admin: 03/11/18 08:26 Dose: 20 mg Ondansetron HCl (Zofran Inj*) 4 mg IV Q6H PRN PRN Reason: NAUSEA Oxycodone/Acetaminophen (Percocet 5/325 Tab*) 1 tab PO Q4H PRN PRN Reason: PAIN Last Admin: 03/11/18 08:27 Dose: 1 tab Pravastatin Sodium (Pravachol (Nf)) 10 mg PO DAILY [facility]; Protocol Last Admin: 03/11/18 08:28 Dose: 10 mg Tamsulosin HCl (Flomax Cap*) 0.4 mg PO DAILY [facility] Last Admin: 03/11/18 08:25 Dose: 0.4 mg Thiamine HCl (Vitamin B-1 Tab*) 100 mg PO DAILY [facility] Last Admin: 03/11/18 08:28 Dose: 100 mg Vital Signs - 8 hr 03/11/18 03/11/18 03/11/18 06:28 08:00 08:27 Temperature Pulse Rate 86 Respiratory 20 18 Rate Blood Pressure 114/71 (mmHg) O2 Sat by Pulse 100 Oximetry 03/11/18 03/11/18 03/11/18 09:06 10:19 10:27 Temperature 98.0 F 98.0 F Pulse Rate 92 91 Respiratory 20 20 18 Rate Blood Pressure 112/69 103/62 (mmHg) O2 Sat by Pulse 100 100 Oximetry 03/11/18 10:36 Temperature Pulse Rate Respiratory 18 Rate Blood Pressure (mmHg) O2 Sat by Pulse Oximetry Oxygen Devices in Use Now: None Appearance: Middle aged gentleman sitting up in bed in NAD. Eyes: No Scleral Icterus Ears/Nose/Mouth/Throat: Mucous Membranes Moist Neck: Trachea Midline Respiratory: Symmetrical Chest Expansion and Respiratory Effort, Clear to Auscultation Cardiovascular: RRR - Normal S1 and S2 Extremities: - - CDI right hip, no edema, no calf tenderness Neurological: Alert and Oriented x 3, NL Muscle Strength and Tone Result Diagrams: 03/11/18 05:12 03/11/18 05:12 Assess/Plan/Problems-Billing Assessment: Mr Ambriz is a 57yo M with a PMH of right intertrochanteric fracture with surgical fixation 03/01/18 after a fall earlier this month as well as COPD, Alcohol abuse, tobacco abuse, and recent urinary retention who presents with sepsis from a urinary tract infection related to his serra catheter as well as an inability to take care of himself at home. - Patient Problems (1) Sepsis Comment: - Presentation compatible with sepsis on admission with tachycardia and fever. - Lactic normal without evidence of end-organ dysfunction. - Source if UTI, Serra catheter related, present on admission. (2) Urinary tract infection Comment: - Catheter associated, present on admission. - Culture grew Klebsiella resistent to Ampicillin only. - Change Cefepime to Cefazolin. - Will change Serra catheter tomorrow. (3) Anemia Comment: - From recent surgical acute blood loss and AOCD. - H/H stable. - Continue Ferrous sulfate. (4) COPD (chronic obstructive pulmonary disease) Comment: - Stable. - Continue bronchodilators PRN. (5) EtOH dependence Comment: - No signs of withdrawal. - D/c WAM protocol. - Continue thiamine and folic acid. (6) Fracture, intertrochanteric, right femur Comment: - Ortho input appreciated. - Continue pain management. - PT/OT. (7) Urinary retention Comment: - Failed previous void trial with high residuals. - Continue Flomax and Proscar. - Will need Urology evaluation as outpatient. (8) DVT prophylaxis Comment: - SQ heparin. Status and Disposition: Inpatient for placement. Unsafe to discharge home due to severe infection and inability to care for self.
[2018-03-11] MEDS: Mometasone/Formoter 200/5 MDI INH SCH ×2 (15:15→20:12)
--- NOTE | 2018-03-11 15:31 | PN ---
Progress Note - Progress Note Date of Service: 03/11/18 SOAP: Subjective: []Patient seen and examined at bedside. He feels well without complaint of hip pain, fever or chills. Objective: []General: Well appearing, NAD RLE: Incision CDI without erythema or discharge. thigh is soft. hip PROM 0-90 nonpainful. Assessment: []S/P Gamma Nail of the right hip on 03/01/2018 Plan: Exam not concerning for infection of hip. Daily DSD change, gunnar to be removed 14 days post op.
[2018-03-11] MEDS: Morphine VIAL* 4 MG/ML VIAL (1 ml vial) IV PRN (21:33)
[2018-03-12] MEDS: Mometasone/Formoter 200/5 MDI INH SCH ×2 (00:15→07:17)
[2018-03-12] MEDS: oxyCODONE/Acetamin 5/325 MG* TAB PO PRN ×2 (05:34→10:00)
[2018-03-12] MEDS: Heparin VIAL(*) 5000 UNITS/ML VIAL (FIVE THOUSAND) SUBCUT SCH (05:35)
[2018-03-12 06:56] LABS: ABS Basophils 0.1 10^3/ul (0-0.2); ABS Eosinophils 0.3 10^3/ul (0-0.6); ABS Lymphocytes 1.7 10^3/ul (1.0-4.8); ABS Monocytes 0.7 10^3/ul (0-0.8); ABS Neutrophils 6.1 10^3/ul (1.5-7.7); ABS Nucleated RBC 0 10^3/ul; Eosinophil % 2.9 % (0-6); Hematocrit 30 % (42-52); Hemoglobin 10.2 g/dl (14.0-18.0); Lymphocyte % 19.2 % (25-47); Mean Corpuscular HGB Conc 34 g/dl (31-36); Mean Corpuscular Hemoglobin 34 pg (27-31); Mean Corpuscular Volume 100 fL (80-94); Mean Platelet Volume 6.7 fL (7.4-10.4); Nucleated Red Blood Cells % 0.1; Platelet Count 498 10^3/ul (150-450); Red Blood Count 2.97 10^6/ul (4.00-5.40); Red Cell Distribution Width 13 % (10.5-15); White Blood Count 8.9 10^3/ul (3.5-10.8)
[2018-03-12 07:13] LABS: EGFR Non-African American 115.4 (>60)
[2018-03-12] MEDS ORDERED: Magnesium Sulfate IV* 3 GM in NS 0.9% 100 ML* 100 ML IVPB ONE (07:19)
[2018-03-12] MEDS: Tamsulosin CAP* 0.4 MG PO SCH (10:01)
[2018-03-12] MEDS: Aspirin TAB* 325 MG PO SCH (10:02)
[2018-03-12] MEDS: Omeprazole CAP* 20 MG PO SCH (10:02)
[2018-03-12] MEDS: BuPROPion XL* 300 MG TAB.XL PO SCH (10:02)
[2018-03-12] MEDS: Finasteride TAB* 5 MG PO SCH (10:02)
[2018-03-12] MEDS: Thiamine TAB* 100 MG TAB PO SCH (10:02)
[2018-03-12] MEDS: Multivitamins/Minerals TAB PO SCH (10:02)
[2018-03-12] MEDS: Nabumetone TAB* 500 MG PO SCH (10:02)
[2018-03-12] MEDS: Folic Acid TAB* 1 MG PO SCH (10:02)
[2018-03-12] MEDS: CMCS Pravastatin (NF) 20 MG TAB PO SCH (10:03)
[2018-03-12] MEDS: hydrOXYzine HCL TAB* 50 MG PO SCH (10:03)
[2018-03-12] MEDS: Ferrous Sulfate TAB* 325 MG PO SCH (10:03)
[2018-03-12] MEDS: Docusate CAP* 100 MG PO SCH (10:18)
[2018-03-12] MEDS: Cefepime 2 GM in Dextrose(*) 2 GM/50 ML BAG IV SCH (11:54)
--- NOTE | 2018-03-12 11:56 | DS ---
CC: Dr. Ye Peraza; Dr. Pa; [facility] DATE OF ADMISSION: 03/09/2018. DATE OF DISCHARGE: 03/12/2018. DISCHARGE DIAGNOSES: 1. Sepsis, present on admission. 2. Klebsiella UTI, Mckoy catheter related, present on admission. 3. Acute blood loss/anemia of chronic disease. 4. Right intertrochanteric hip fracture, status post closed reduction and gamma nail on 03/01/2018. 5. COPD. 6. Alcohol abuse. 7. Tobacco abuse. 8. Urinary retention. MEDICATIONS: 1. Tylenol 650 mg p.o. q.4 hours prn pain or fever. 2. Albuterol/Ipratropium one puff inhaled q.i.d. prn shortness of breath and wheezing. 3. Aspirin 325 mg p.o. daily. 4. Budesonide/Formoterol 160/4.5 two puffs inhaled b.i.d. 5. Bupropion XL 300 mg p.o. daily. 6. Cephalexin 500 mg p.o. q.i.d. for 10 more days. 7. Cyanocobalamin 1,000 mg p.o. daily. 8. Cyclobenzaprine 10 mg p.o. t.i.d. as needed for muscle spasms. 9. Colace 100 mg p.o. b.i.d. 10. Ferrous Sulfate 325 mg p.o. b.i.d. 11. Finasteride 5 mg p.o. daily. 12. Folic Acid 1 mg p.o. daily. 13. Hydroxyzine 100 mg p.o. b.i.d. 14. Magnesium Oxide 400 mg p.o. daily. 15. Multivitamin one tablet p.o. daily. 16. Nabumetone 500 mg p.o. b.i.d. 17. Nicotine gum one gum p.o. q.4 hours prn cravings. 18. Omeprazole 20 mg p.o. b.i.d. 19. Percocet 5/325 mg one tablet p.o. q.4 hours prn severe pain. 20. Pravastatin 10 mg p.o. daily. 21. Tamsulosin 0.4 mg p.o. daily. 22. Thiamine 100 mg p.o. daily. HOSPITAL COURSE: Mr. Ambriz is a 57-year-old male with a past medical history as stated above who p resented to the emergency room on March 09 as he could not take care of himself. He had been ad mitted to our service early in February after a fall with a right intertrochanteric hip fracture. He underwent gamma nail fixation, but after discharge he was not able to manage at home. For more deta ils of his presentation, I refer you to his history and physical. On admission, the patient met sepsis criteria with fever, tachycardia and the impression was that the source was a urinary tract infection. The patient was admitted to the Medical floor and treatment was continued. Urine culture grew klebsiella and the patient responded well to antibiotics. He has now been transit ioned to Cephalexin to complete ten more days of treatment. Of note is that on his prior admission, the patient was found to have urinary retention and was discharged with a Mckoy catheter that he was not able to care for at home. At this point, he is on Flomax and Proscar and the plan is for him to follow-up with Urology after his urinary tract infection is resolved. 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 As described above, the patient will need Urology follow-up after he fini shes the treatment of his urinary tract infection and before his Mckoy catheter is removed. His Fole y catheter was exchanged on March 12 prior to discharge. The patient was also seen by Orthopedics and the impression was that his healing was progressing well , that he will need to follow-up with Dr. Pa in the future. The plan is to have his gunnar rem ananda on March 16. At this point, the patient has only dry gauze dressing that is changed daily. There is no evidence for infection at this point. It was felt that the patient could not manage at home independently and the idea is for him to go to [facility] for rehabilitation before he returns to independent life at his home. The patient is medically stable for discharge at this time. PHYSICAL EXAMINATION: General: The patient is a middle-aged gentleman, sitting up in bed in no acut e distress. Vital Signs: Temperature 97.4, heart rate 92, respiratory rate 18, oxygen saturation 10 0 percent on room air, blood pressure 116/73. CVS: Normal S1, S2, regular rate and rhythm. Chest: Breath sounds bilaterally, no added sounds. Abdomen: Soft, bowel sounds are present. Extremities: His surgical incisions are clean and dry on the right hip. Neuro: He is alert, awake, and oriented times three, able to move all four extremities. DIET: Regular diet. ACTIVITY: As tolerated. DISPOSITION: To [facility]. STATUS WHILE IN THE HOSPITAL: Inpatient. Please keep in mind this is a summarized version of this patient's hospital stay. If you need more in formation, please feel free to call me at or please obtain the full medical records. Approximately 45 minutes were spent to complete this discharge. [id number]/CPS #: [id number]
[2018-03-12] MEDS: Cyclobenzaprine TAB* 10 MG PO PRN (12:09)
[2018-03-12 12:31] VITALS: BP 109/53
== END 2018-03-12 13:35 | DRG 466 ==
LOC: ED 17:34 → MED 20:35
PROVIDERS: ADMIT Pediatrics; ATTEND Internal Medicine
PROC: 0T2BX0Z Change Drainage Device in Bladder, External Approach (ICD-10-PCS; principal; 2018-03-12)
DX: T83.511A Infection and inflammatory reaction due to indwelling urethral catheter, initial encounter (principal); A41.9 Sepsis, unspecified organism; S72.141A Displaced intertrochanteric fracture of right femur, initial encounter for closed fracture; M97.01XA Periprosthetic fracture around internal prosthetic right hip joint, initial encounter; D62 Acute posthemorrhagic anemia; F17.210 Nicotine dependence, cigarettes, uncomplicated; J44.9 Chronic obstructive pulmonary disease, unspecified; E78.5 Hyperlipidemia, unspecified; K21.9 Gastro-esophageal reflux disease without esophagitis; Y90.9 Presence of alcohol in blood, level not specified; R33.9 Retention of urine, unspecified; Y73.1 Therapeutic (nonsurgical) and rehabilitative gastroenterology and urology devices associated with adverse incidents; N39.0 Urinary tract infection, site not specified; F10.20 Alcohol dependence, uncomplicated; M70.61 Trochanteric bursitis, right hip; B96.1 Klebsiella pneumoniae [K. pneumoniae] as the cause of diseases classified elsewhere; Z16.11 Resistance to penicillins; D63.8 Anemia in other chronic diseases classified elsewhere; V87.8XXA Person injured in other specified noncollision transport accidents involving motor vehicle (traffic), initial encounter; Y92.009 Unspecified place in unspecified non-institutional (private) residence as the place of occurrence of the external cause; Y92.89 Other specified places as the place of occurrence of the external cause
CPT/HCPCS: 36415; 71045; 74177; 80048; 80053; 80307; 80320; 81003; 81015; 82140; 82607; 82728; 82746; 83540; 83550; 83605; 83735; 85025; 85610; 85652; 85730; 86140; 87040; 87077; 87086; 87186; 93005; 94640; 99284; A9270-GY; G0480; J0692; J1644; J2270; J2543; J3475; Q9967

== ENCOUNTER 2019-03-31 23:21 | Emergency (ER) | payer SELFPAY ==
[2019-03-31] MEDS ORDERED: LORazepam INJ* 2 MG/ML 1 ML VIAL IV PUSH ONE (23:22)
[2019-03-31] MEDS ORDERED: Haloperidol INJ IV/IM* 5 MG/ML AMP IV SLOW PU ONE (23:22)
[2019-03-31] MEDS ORDERED: diPHENhydraMINE IV* 50 MG/ML 1 ml VIAL (BENADRYL) IM ONE (23:22)
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
[2019-04-01 00:09] LABS: Hematocrit 42 % (42-52); Hemoglobin 14.6 g/dL (14.0-18.0); Mean Corpuscular HGB Conc 35 g/dL (31-36); Mean Corpuscular Hemoglobin 35 pg (27-31); Mean Corpuscular Volume 101 fL (80-94); Mean Platelet Volume 7.6 fL (7.4-10.4); Platelet Count 193 10^3/uL (150-450); Red Blood Count 4.13 10^6 /uL (4.18-5.48); Red Cell Distribution Width 13 % (10-15)
[2019-04-01 00:25] LABS: ALT 18 U/L (7-52); AST 30 U/L (13-39); Albumin/Globulin Ratio 1.5 (1-3); Alkaline Phosphatase 49 U/L (34-104); Anion Gap 10 mmol/L (2-11); BUN/Creatinine Ratio 4.6 (8-20); Blood Urea Nitrogen 3 mg/dL (6-24); CO2 Carbon Dioxide 26 mmol/L (22-32); Calcium 9.3 mg/dL (8.6-10.3); Chloride 107 mmol/L (101-111); EGFR African American 151.6 (>60); EGFR Non-African American 125.3 (>60); Globulin 2.7 g/dL (2-4); Glucose 87 mg/dL (70-100); Potassium 3.7 mmol/L (3.5-5.0); Sodium 143 mmol/L (135-145); Total Protein 6.7 g/dL (6.4-8.9)
[2019-04-01 00:40] LABS: Acetaminophen < 15 mcg/mL; Alcohol 321 mg/dL (<10); Salicylate < 2.50 mg/dL (<30)
[2019-04-01 00:56] LABS: TSH (Thyroid Stimulating Horm) 1.59 mcIU/mL (0.34-5.60)
[2019-04-01 01:44] LABS: ABS Eosinophils 0.1 10^3/ul (0-0.6); ABS Lymphocytes 2.5 10^3/ul (1.0-4.8); ABS Monocytes 0.5 10^3/ul (0-0.8); ABS Neutrophils 0.9 10^3/ul (1.5-7.7); Eosinophil % 1.8 %; Lymphocyte % 62.5 %; Nucleated Red Blood Cells % 0.1
--- NOTE | 2019-04-01 07:19 | ED ---
Progress - Progress Note Progress Note: This patient was signed out from Dr. Weinstein at shift change on 04/01/19 at 0700 awaiting sobriety, medical clearance, mental health evaluation, and disposition. Re-Evaluation - Re-Evaluation First Eval Re-Evaluation Time: 07:15 Comment: Patient is sleeping comfortably. Second Eval Re-Evaluation Time: 09:20 Comment: Patient is medically cleared. Course/Dx - Course Course Of Treatment: Patient was signed out by Dr. Weinstein pending medical clearance and MHE. Pt was medically cleared. He is alert and oriented x3 at this time. Patient had a mental health fur blender and his case was reviewed by Dr. Parmar, psychiatrist. Per mental health fur blender, Dr. Parmar recommends discharge home. Patient will be discharged home with dx adjustment disorder. - Diagnoses Provider Diagnoses: Adjustment disorder Discharge ED - Sign-Out/Discharge Documenting (check all that apply): Patient Departure - Discharge home, Receiving Sign-Out Receiving patient FROM: Irene Weinstein - Discharge Plan Condition: Stable Disposition: HOME Referrals: Ye Peraza MD [Primary Care Provider] - - Billing Disposition and Condition Condition: STABLE Disposition: Home - Attestation Statements Document Initiated by Scribe: Yes Documenting Scribe: Tiffanie Lopez Provider For Whom Amrit is Documenting (Include Credential): Matt Ortiz MD Scribe Attestation: Tiffanie Thompson, scribed for Matt Ortiz MD on 04/03/19 at 0915. Scribe Documentation Reviewed: Yes Provider Attestation: The documentation as recorded by the Tiffanie vides accurately reflects the service I personally performed and the decisions made by me, Matt Ortiz MD Status of Scribe Document: Viewed
[2019-04-01 09:09] LABS: Urine Appearance Clear; Urine Bilirubin Negative (Negative); Urine Blood Negative (Negative); Urine Color Yellow; Urine Glucose Negative (Negative); Urine Ketones Negative (Negative); Urine Nitrite Negative (Negative); Urine Protein Negative (Negative); Urine Specific Gravity 1.005 (1.010-1.030); Urine Urobilinogen Negative (Negative)
[2019-04-01 09:27] LABS: Urine Benzodiazepine Screen None Detected (None Detect); Urine Opiates Screen None Detected (None Detect)
[2019-04-01 11:50] VITALS: BP 141/99
== END 2019-04-01 11:50 | disposition home or self-care (01) ==
LOC: ED 23:21
DX: F43.20 Adjustment disorder, unspecified (principal); F10.129 Alcohol abuse with intoxication, unspecified; N40.0 Benign prostatic hyperplasia without lower urinary tract symptoms; F17.210 Nicotine dependence, cigarettes, uncomplicated
CPT/HCPCS: 36415; 80053; 80307; 80320; 80329; 81003; 84443; 85025; 85060; 99285; G0480; J1200; J1630; J2060